=== PATIENT | female | born 1990 | race American Indian/Alaskan Native ===

== ENCOUNTER 2023-06-10 15:24 | Outpatient (REF) | payer OTHER, SELFPAY ==
[2023-06-10 16:28] LABS: Basophils Absolute Auto 0.02 K/uL (0.00-0.30); Basophils Percent Auto 0.3 % (0.0-3.0); Eosinophils Absolute Auto 0.08 K/uL (0.00-0.50); Eosinophils Percent Auto 1.1 % (0.0-7.0); Hematocrit 37.1 % (33.0-51.0); Hemoglobin* 12.3 gm/dL (12.0-16.0); Immature Granulocytes Abs Auto 0.02 K/uL (0.00-0.30); Immature Granulocytes Pct Auto 0.3 %; Lymphocytes Absolute Auto 2.07 K/uL (0.90-2.90); Lymphocytes Percent Auto 29.4 % (20-44); Mean Corpuscular HGB Conc 33 gm/dL (32-36); Mean Corpuscular Hemoglobin 28 pg (26-34); Mean Corpuscular Volume 85 fL (80-100); Monocytes Percent Auto 5.3 % (0.0-11.0); Neutrophils Absolute Auto 4.47 K/uL (1.7-7.0); Neutrophils Percent Auto 63.6 % (42.0-72.0); Platelet Count* 296 K/uL (140-440); RDW Coefficient of Variation % 12.6 % (11.5-15.5); Red Blood Count 4.35 m/uL (4.00-5.20); White Blood Count* 7.03 K/uL (4.50-11.00)
[2023-06-10 16:33] LABS: Slide Review Reflex No
[2023-06-10 16:39] LABS: Iron* 92 ug/dL (37-170)
[2023-06-10 16:50] LABS: Percent Iron Saturation 24 % (20-50); Total Iron Binding Capacity 379 ug/dL (265-497)
[2023-06-10 17:12] LABS: Thyroid Stimulating Hormone* 0.576 uIU/mL (0.270-4.20)
[2023-06-10 17:16] LABS: Ferritin* 43.4 ng/mL (6.24-137.0)
== END 2023-06-10 15:25 | disposition home or self-care (01) ==
LOC: NPINS 15:24
PROVIDERS: PCP Family Medicine; Visit Provider Dermatology
DX: L65.9 Nonscarring hair loss, unspecified (principal)
CPT/HCPCS: 82728; 83540; 83550; 84443; 85025

== ENCOUNTER 2023-07-25 08:20 | Outpatient (CLI) | payer OTHER, SELFPAY | END 2023-07-25 08:21 | disposition home or self-care (01) | LOC: NFLDREF 07-26 08:51 | PROVIDERS: PCP Family Medicine; Referring Provider Family Medicine; Visit Provider Family Medicine | DX: Z01.419 Encounter for gynecological examination (general) (routine) without abnormal findings (principal); E66.9 Obesity, unspecified; Z13.6 Encounter for screening for cardiovascular disorders; Z13.9 Encounter for screening, unspecified | CPT/HCPCS: 80053; 80061 ==

== ENCOUNTER 2023-11-01 13:55 | Outpatient (CLI) | payer OTHER, SELFPAY ==
--- NOTE | 2023-11-01 14:00 | CRLHL7_ITS ---
For Patients: As a result of the Century Cures Act, medical imaging exams and procedure reports are released immediately into your electronic medical record. You may view this report before your referring provider. If you have questions, please contact your health care provider. BILATERAL SCREENING MAMMOGRAM WITH COMPUTER-AIDED DETECTION AND TOMOSYNTHESIS TECHNIQUE: CC and MLO views were obtained. These mammographic images have been obtained using full-field digital technique. These mammographic images were interpreted with the benefit of computer-aided detection. Breast Tomosynthesis was used in this interpretation. COMPARISON FILM: 11/17/19. FINDINGS: The breasts are heterogeneously dense, which may obscure small masses IMPRESSION: There is no radiographic evidence for malignancy. ASSESSMENT: BI-RADS Category 1: Negative RECOMMENDATION: Routine screening mammogram in 1 year. A lay language report of this examination will be provided to the patient. Say Rodriguez M.D. Diagnostic Radiologist [email or web address] Transcribed: 4:37 p.mJeremias forbes/Dictated by: Say Rodriguez MD @ 11/05/2023 11:22:00 AM (Electronically Signed)
== END 2023-11-01 13:56 | disposition home or self-care (01) ==
LOC: MAMMO 13:56
PROVIDERS: PCP Family Medicine; Visit Provider Family Medicine
DX: Z12.31 Encounter for screening mammogram for malignant neoplasm of breast (principal); R92.2 Inconclusive mammogram; Z80.3 Family history of malignant neoplasm of breast
CPT/HCPCS: 77063; 77067

== ENCOUNTER 2024-02-21 10:57 | Outpatient (CLI) | payer OTHER, SELFPAY ==
--- OUTSIDE RECORDS SUMMARY | 2024-02-21 10:59 | XMS_ITS | Encounter Summary ---
Author Name Unknown Organization [facility] Address [address], [place] [address] Care Team Providers Care Operations Controller Name Role Phone Clinician, Not Found MD Primary Care Provider Un available Reason for Visit * Reason Comments Knee Problem * Therapies (Routine) - New Request Specialty Diagnoses / Procedures Referred By Dex alexis Referred To Contact Diagnoses Derangement of medial meniscus due to injury Stephen Jenkins, PAArnaldoC [address] [place] [address] Referral ID Status Reason Start Date Expiration Date V isits Requested Visits Authorized [id number] New Request 11/26/2023 11/25/2024 1 1 Encounter Details Date Type Department Care Team (Late st Contact Info) Description 12/11/2023 9:15 AM BLANKING PRESS OPERATOR Therapy [facility] at [address] [place] [address] Allyson Han, PT [address] [place] [address] Acute pain of left knee (Primary Dx) Social History Tobacco Use Types Packs/Day Years Used Date Smoking Tobacco: Never Smokeless Tobacco: Never Sex and Gender Information Value Date Recorded Sex Assigned at Not on file Gender Identity Not on file Sexual Orientation Not on file documented as of this encounter Progress Notes * Allyson Han, PT - 12/11/2023 9:15 AM CST Physical Therapy Knee Evaluation/Plan of Care Initial Certification Period: 12/11/2023 to 02/09/24 Referring Provider: Stephen Jenkins Visit Diagnosis: 1. Acute pain of left knee Precautions: None Orders: Evaluate & treat Onset/Referral Date: 11/26/23 X-ray L knee 11/26/23: FINDINGS: Three views were obtained. No acute or significant bone or joint abnormality of the left knee is identified. Alignment is unremarkable. Minimal dorsal patellar osteophyte formation. No significant joint effusion. SUBJECTIVE Reason for Visit: Luanne is a 33 y/o F who presents with left knee pain after she slipped on the ice on 11/25/23. She heard a pop, noted rapid onset of knee swelling, and was unable to bear weight. She was seen in and given crutches, also using wheelchair for long distances. 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 She has an appointment with Dr. Kelly at [facility] next week. She is supposed to go to [place] in January and also supposed to fly to [place] soonto see her sister's baby. Symptoms have been improving gradually. She is using a knee brace. Patient Therapy Goals:Resume previous level of activity symptom free. Past Medical History: Patient has no past medical history on file. Recently Experienced (Red Flags): None Previous Treatment: medications, brace Benefited from previous treatment: yes Pain details: Current pain intensity level: 3/10 Pain location: medial L knee Additional Symptoms: swelling Aggravating factors:any weight bearing Relieving factors: Restriction of activity Work/Leisure/Sport: As above. Enjoys dance. Patient History: Low Complexity: No personal factors or comorbidities that impact plan of care OBJECTIVE Observation: Lateral stability knee brace donned Gait Exam: with axillary crutches, NWB L LE Edema:Circumference: 34.5 cmn R, 37 cm L Screening: Not performed ROM: AROM Left Extension ROM: initially lacking 5, then close to full extension at end of session Flexion ROM: 85 Right Extension ROM: 0 Flexion ROM: 140 Strength: Left: Quad set: fair SLR: fair, without extensor lag Joint Mobility: Not tested Palpation: Left tender: Medial joint line, VMO Special Tests: Left: Lachmans for ACL: Negative Posterior drawer for PCL: Negative Valgus Stress for MCL: Positive for pain Varus Stress for LCL: Negative Rahat: Positive PT - Musculoskeletal - Knee Knee Outcome Survey - ADL (0-100%, 100 being best): 49 Knee Outcome Survey - Sport (0-100%, 100% being best): 38 Clinical Examination: High Complexity: Addressed 4 or more elements from body structures and functions (see above), and/or functional limitations as noted below. Today's Intervention/Charges: Physical Therapy Evaluation was completed and the patient was educated on the condition, planned therapy intervention and expectations from treatment. Therapeutic exercise x 10 minutes: Instructed in the following with therapist and patient demo as needed, with patient education on rationale and therapeutic effects, as well as instruction in frequency, duration and intensity as appropriate: - Supine Quad Set - 2 x daily - 2 sets - 10 reps - 5 hold - Supine Active Straight Leg Raise - 2 x daily - 10 reps - Supine Heel Slide - 2 x daily - 15 reps - Supine Knee Extension Stretch on Towel Roll - 2 x daily - 2-5 minutes hold - Seated Heel Slide - 2 x daily - 15 reps Self care/home management x 5 minutes: Diagnosis Education, RICE principles Gait training x 12 minutes: Lateral weight-shifts at barre, able to bear 100% weight through LLE. Instructed on PWB with axillary crutches and heel-toe pattern, gradual progression of weight-bearing.Education for sequencing for descending stairs with step-to pattern and railing; patient has been descending stairs with a butt scoot. Performs well. Timed Code Treatment Minutes: 27 Total Treatment Minutes: 45 Current Home Exercise Program: Access Code: [email or web address] ASSESSMENT Therapist Impression/Summary: Acute left knee pain after slip and fall, meniscus vs MCL injury. HasOrthopedics appointment on 12/25. Able to progress WBing status without increased pain today with use of crutches. Will continue to work on swelling management, ROM, quad strength and gait. PT Clinical Presentation: Low Complexity: Stable and Uncomplicated Clinical Decision Making: Low Complexity Recommendations/Equipment: continue use of brace and crutches Significant Impairments: Pain, Muscle weakness, Poor quad activation/strength, Edema, ROM Limitation Functional Limitations: difficulty dressing, difficulty with household tasks, difficulty meeting work demands, difficulty with sports/leisure activities, difficulty with gait, and difficulty with stairs Goals/Functional Outcomes: HEP/Independent Management: Demonstrate independence with HEP and self- management following each treatment session ADL's: Perform home management tasks with ease in 6 weeks. Perform sit to stand transfer using involved lower extremity in 2 weeks. Ambulation: Ambulate with normal gait pattern with minimal to no symptoms/limp in 4 weeks. Ascend/descend stairs independently with reciprocal pattern with minimal to no symptoms and improved lower extremity alignment in 4 weeks. Work: Return to work without restrictions in 8 weeks. Sports/Leisure: Return to prior level of leisure or recreational activities, including dance, without an increase in symptoms or limitations in 12 weeks. Barriers to Goal Achievement or Learning: none Prognosis: Good PLAN Planned Intervention/Education: ADL/Self Management, Education, Gait training, Heat/ice, Manual Therapy, Neuromuscular Re-education, Therapeutic Activities, Therapeutic Exercise Frequency: 1 x week Duration: 60 days Discharge Plan: Patient will be discharged from therapy when goals are achieved or patient plateausin progress. Informed Consent: Patient and/or family in agreement with the care plan. Plan for Next Treatment: Progress gait to tolerance, ROM, heel raise, quad strength. The project manager is completed by the therapist and the referring clinician's electronic signature certifies medical necessity for the plan above. KING PRESS OPERATOR documented in this encounter Plan of Treatment Upcoming Encounters Date Type Department Care Team (Late st Contact Info) Description 03/06/2024 1:45 PM CDT Appointment [facility] at [address] [place] [address] Allyson Han, PT [address] [place] [address] Scheduled Referrals Name Type Priority Associated Diagnoses Orde r Schedule Physical Therapy Referral Routine Derangement of medial meniscus due to injury Ordered: 11/26/2023 documented as of this encounter Visit Diagnoses Diagnosis Acute pain of left knee- Primary documented in this encounter Care Teams Operations Controller Relationship Specialty Start Date End Date Clinician, Not Found, [place] [address] PCP - General 12/02/23 documented as of this encounter
--- OUTSIDE RECORDS SUMMARY | 2024-02-21 10:59 | XMS_ITS | Encounter Summary ---
Author Name Unknown Organization [facility] Address [address], [place] [address] Care Team Providers Care Controls Technician Name Role Phone Clinician, Not Found MD Primary Care Provider Un available Reason for Visit * Reason Comments AFTERCARE, POST-OP CHECK Left Knee Encounter Details Date Type Department Care Team (Late st Contact Info) Description 01/01/2024 2:10 PM PHARMACY DATA ANALYST Office Visit [facility] [address] [place] [address] Thai Kelly MD [address] [place] [phone] Sprain of medial collateral ligament of left knee, subsequent encounter (Primary Dx) Social History Tobacco Use Types Packs/Day Years Used Date Smoking Tobacco: Never Smokeless Tobacco: Never Sex and Gender Information Value Date Recorded Sex Assigned at Not on file Gender Identity Not on file Sexual Orientation Not on file documented as of this encounter Patient Instructions * Patient Instructions* Robby Reagan - 01/01/2024 2:10 PM PHARMACY DATA ANALYST Thank you for Choosing [facility] for your health care visit today. Dr. Thai Kelly MD Orthopaedic Surgeon, Board Certified Medication Requests: Prescriptions are not filled on weekends or on weekdays after 3:00 PM. For all medication refills: Request a refill using MyChart or contact your pharmacy. What is Know Your Cost? Know Your Cost is a service for patients and patient/members to call and receive personalized cost information and estimates across our care group. The phone number is (COST) Saturday - Saturday 8 AM to 5 PM Advanced Imaging Scheduling: To schedule an MRI, Ultrasound, or Image guided injection at [facility] please call [phone]. To schedule an MRI or CT at a [facility] location please call [phone]. [facility] Workers' Compensation [address] [place] [address] (Phone) Email: [email or web address] Release of Information: Radiology/Imaging [address] [place] [address] (Phone) Health Information Management [address] [place] [address] (Phone) [employer] MACY DATA ANALYST documented in this encounter Progress Notes * Thai Kelly MD - 01/01/2024 2:10 PM CST Luanne Rodriguez [id number] 1990 [facility] Orth[facility] Follow-Up 01/01/2024 Chief Complaint: Left Knee MRI results History of Present Illness: Luanne Rodriguez is a 33 y.o. female who presents for follow-up regarding her left knee to review theMRI results. Patient was last seen by me on 12/25/23. At that time I suspected an ACL sprain and She is currently 5 weeks out from her injury. She had a physical therapy appointment for this morning but her therapist had to cancel. She has plans to go to [place] on January 15. She also purchased [employer]. Review of Systems: Negative for any radicular pain, weakness, or numbness in the distal lower extremities. No fever, chills, rash, or sweats. Physical Exam: We reviewed the MRI study. It confirms a sprain of the medial collateral ligament. The Anterior Crucial Ligament is intact and there is no meniscus tear Imaging: MRI of the left knee - (01/01/24): IMPRESSION: 1. Moderate sprain of the medial collateral ligament, proximal aspect. 2. Possible mild sprain of the lateral retinaculum, although the overlying fluid signal may be incidental or related to the superficial infrapatellar fluid/bursitis. 3. No meniscal tear identified. No evidence of ACL tear or other ligament or tendon disruption. 4. The T2 signal in the superior lateral aspect of Hoffa's fat pad may reflect edema or inflammation related to contusion or mechanical fat pad impingement. I ordered and independently reviewed and interpreted the imaging studies above; the results were discussed with the patient. Assessment: Medial collateral ligament sprain, left knee Plan: She can continue with her rehab exercises and gradually increase her activities as tolerated. I suspect the residual soreness will resolve over the next few weeks. We will see her back for a follow up on an as needed basis. Scribe Disclosure: I, Bella A Dajuan, am serving as a scribe to document services personally performed by Thai Kelly MD at this visit, based upon the provider's statements to me. All documentation has been reviewed by the aforementioned provider prior to being entered into the official medical record. Portions of this medical record were completed by a scribe. UPON MY REVIEW AND AUTHENTICATION BY ELECTRONIC SIGNATURE, this confirms (a) I performed the applicable clinical services, and (b) the record is accurate. Thai Kelly MD documented in this encounter Plan of Treatment Upcoming Encounters Date Type Department Care Team (Late st Contact Info) Description 03/06/2024 1:45 PM CDT Appointment [facility] at [address] [place] [address] Allyson Han, PT [address] [place] [address] documented as of this encounter Visit Diagnoses Diagnosis Sprain of medial collateral ligament of left knee, subsequent encounter- Primary documented in this encounter Care Teams Controls Technician Relationship Specialty Start Date End Date Clinician, Not Found, [place] [address] PCP - General 12/02/23 documented as of this encounter
--- OUTSIDE RECORDS SUMMARY | 2024-02-21 10:59 | XMS_ITS | Encounter Summary ---
Author Name Unknown Organization [facility] Address [address] [place] [address] Care Team Providers Care Lining Cementer Name Role Phone Clinician, Not Found MD Primary Care Provider Un available Reason for Visit * Procedure/Equipment (Routine) - Incomplete Specialty Diagnoses / Procedures Referred By Dex alexis Referred To Contact Diagnoses Acute pain of left knee Procedures MR Knee Lt WO IV Cont Thai Kelly MD [address] [address] Referral ID Status Reason Start Date Expiration Date V isits Requested Visits Authorized [id number] Incomplete 12/25/2023 03/25/2025 1 1 Encounter Details Date Type Department Care Team (Late st Contact Info) Description 01/01/2024 11:50 AM HAIR STYLIST Ancillary Procedure [facility] [address] [place], [place] [id number] Thai Kelly MD [address] [facility] [address] [address] [place] [id number] Acute pain of left knee Social History Tobacco Use Types Packs/Day Years Used Date Smoking Tobacco: Never Smokeless Tobacco: Never Sex and Gender Information Value Date Recorded Sex Assigned at Not on file Gender Identity Not on file Sexual Orientation Not on file documented as of this encounter Plan of Treatment Upcoming Encounters Date Type Department Care Team (Late st Contact Info) Description 03/06/2024 1:45 PM CDT Appointment [facility] at [place] [address] [address] [facility] [place] [address] Allyson Han, PT [address] [place] [address] documented as of this encounter Procedures Procedure Name Priority Date/Time Associated Diagnosis Comments MR KNEE LT WO IV CONT Routine 01/01/2024 12:33 PM HAIR STYLIST Acute pain of left knee documented in this encounter Results * MR Knee Lt WO IV Cont (01/01/2024 12:33 PM HAIR STYLIST) Anatomical Region Laterality Modality Lower Extremity, Knee, Skeletal, Thigh, Leg, MSK Left Magnetic Resonance 01/01/2024 12:0 9 PM HAIR STYLIST Impressions 01/01/2024 12:48 PM HAIR STYLIST TECHNIQUE: ??Routine MRI of the left knee was performed without contrast. ? COMPARISON: ??None. ? FINDINGS: ? MEDIAL COMPARTMENT: ??No focal cartilage defect. ??No meniscal tear identified. ? LATERAL COMPARTMENT: ??No focal cartilage defect. ??No meniscal tear identified. ? PATELLOFEMORAL JOINT: ??No focal cartilage defect. ??There is no significant joint effusion or popliteal cyst. ?? No loose body identified. There is T2 signal hyperintensity in the superior lateral aspect of Hoffa's fat pad. There is a small superficial infrapatellar effusion. ? LIGAMENTS AND TENDONS: ??The anterior and posterior cruciate ligaments are intact. ??There is a moderate sprain of the medial collateral ligament, proximal aspect. ??The iliotibial band, fibular collateral ligament and biceps femoris tendon are intact. ??The popliteus muscle and tendon are intact. ??No evidence for injury of the posterolateral corner support structures. EXTENSOR MECHANISM: The quadriceps and patellar tendons are intact. The medial retinaculum and medial patellofemoral ligament appear intact. There is mild fluid overlying the lateral retinaculum which may be incidental or reflective of mild sprain.. ? MARROW AND SOFT TISSUES: ??No evidence for occult fracture or other intrinsic bone lesion. ??Probable small hemangioma within the proximal medial gastrocnemius muscle. ? IMPRESSION: ?? 1. Moderate sprain of the medial collateral ligament, proximal aspect. 2. Possible mild sprain of the lateral retinaculum, although the overlying fluid signal may be incidental or related to the superficial infrapatellar fluid/bursitis. 3. ?? No meniscal tear identified. No evidence of ACL tear or other ligament or tendon disruption. 4. The T2 signal in the superior lateral aspect of Hoffa's fat pad may reflect edema or inflammation related to contusion or mechanical fat pad impingement. Narrative Procedure Note Tevin Rebolledo MD - 01/01/2024 IMPRESSION TECHNIQUE: Routine MRI of the left knee was performed without contrast. COMPARISON: None. FINDINGS: MEDIAL COMPARTMENT: No focal cartilage defect. No meniscal tearidentified. LATERAL COMPARTMENT: No focal cartilage defect. No meniscal tearidentified. PATELLOFEMORAL JOINT: No focal cartilage defect. There is no significantjoint effusion or popliteal cyst. No loose body identified. There is [id number] hyperintensity in the superior lateral aspect of Hoffa's fat pad.There is a small superficial infrapatellar effusion. LIGAMENTS AND TENDONS: The anterior and posterior cruciate ligaments areintact. There is a moderate sprain of the medial collateral ligament,proximal aspect. The iliotibial band, fibular collateral ligament andbiceps femoris tendon are intact. The popliteus muscle and tendon areintact. No evidence for injury of the posterolateral corner supportstructures. EXTENSOR MECHANISM: The quadriceps and patellar tendons are intact. Themedial retinaculum and medial patellofemoral ligament appear intact. Thereis mild fluid overlying the lateral retinaculum which may be incidental orreflective of mild sprain.. MARROW AND SOFT TISSUES: No evidence for occult fracture or otherintrinsic bone lesion. Probable small hemangioma within the proximalmedial gastrocnemius muscle. IMPRESSION: 1. Moderate sprain of the medial collateral ligament, proximal aspect. 2. Possible mild sprain of the lateral retinaculum, although the overlyingfluid signal may be incidental or related to the superficial infrapatellarfluid/bursitis. 3. No meniscal tear identified. No evidence of ACL tear or otherligament or tendon disruption. 4. The T2 signal in the superior lateral aspect of Hoffa's fat pad mayreflect edema or inflammation related to contusion or mechanical fat padimpingement. Thai Kelly MD RAD MRI documented in this encounter Visit Diagnoses Diagnosis Acute pain of left knee documented in this encounter Care Teams Lining Cementer Relationship Specialty Start Date End Date Clinician, Not Found, [place] [address] PCP - General 12/02/23 documented as of this encounter
--- OUTSIDE RECORDS SUMMARY | 2024-02-21 10:59 | XMS_ITS | Encounter Summary ---
Author Name Unknown Organization [facility] Address [address], [place] [address] Care Team Providers Care Mixer Whipped Topping Name Role Phone Clinician, Not Found MD Primary Care Provider Un available Reason for Visit * Reason Comments Knee Problem Encounter Details Date Type Department Care Team (Late st Contact Info) Description 01/08/2024 7:45 AM DEMAND PLANNER Therapy [facility] at [address] [place] [address] Allyson Han, PT [address] [place] [address] Acute pain of left knee (Primary Dx) Social History Tobacco Use Types Packs/Day Years Used Date Smoking Tobacco: Never Smokeless Tobacco: Never Sex and Gender Information Value Date Recorded Sex Assigned at Not on file Gender Identity Not on file Sexual Orientation Not on file documented as of this encounter Progress Notes * Allyson Han, PT - 01/08/2024 7:45 AM CST Physical Therapy Progress Note Visit Number: 2 Initial Certification Period: 12/11/2023 to 02/09/24 Referring Provider: Stephen Jenkins Visit Diagnosis: 1. Acute pain of left knee Precautions: None X-ray L knee 11/26/23: FINDINGS: Three views were obtained. No acute or significant bone or joint abnormality of the left knee is identified. Alignment is unremarkable. Minimal dorsal patellar osteophyte formation. No significant joint effusion. MRI L knee 01/01/24: IMPRESSION: 1. Moderate sprain of the medial [...] to contusion or mechanical fat pad impingement. SUBJECTIVE Diagnosed with MCL sprain after MRI on 01/01. Has weaned down to 1 crutch often, and also got a set of walking poles for her trip to [place] next week. Also got an elastic knee sleeve. Knee feels more flexible. Pain is lower but will still get increased soreness at the end of the day. OBJECTIVE Observation: Lateral stability knee brace donned Right quadriceps atrophy Gait Exam: With 1 axillary crutch, minimal heel-toe with flat foot Without assistive device, minimally antalgic gait ROM: AROM Left Extension ROM: 0 Flexion ROM: 130 Right Extension ROM: 0 Flexion ROM: 140 Strength: Left: SLR: good Today's Intervention/Charges: Therapeutic exercise x 20 minutes: - Heel raise x 20 - Standing knee flexion x 20 - Mini squat at barre x 15 - Standing hip ABD x 20/side - Supine heel slide 10 sec x 3 - Sit to stand from elevated surface with focus on equal WBing through L LE, can complete with use of hands during concentric phase and decreased control through eccentric phase Gait training x 25 minutes: Gait training for heel-toe gait and knee flexion during swing phase with 1 axillary crutch in R UE. Also practiced this gait pattern without AD and encouraged to ambulate short distances without AD at home as tolerated. Recommend supportive shoes for trip to [place]. Changed feet on [place] walking poles and instructed in technique with extensive practice. Answered questions about use of brace/sleeve, assistive devices. Timed Code Treatment Minutes: 45 Total Treatment Minutes: 45 Current Home Exercise Program: Access Code: [email or web address] - online - Supine Heel Slide - 2 x daily - 15 reps - Supine Knee Flexion Wall Slide - 1 x daily - 10 reps - 10 sec hold - Supine Knee Extension Stretch on Towel Roll - 2 x daily - 2-5 minutes hold - Heel Raises with Counter Support - 2 x daily - 20 reps - Standing Knee Flexion AROM with Chair Support - 2 x daily - 20 reps - Standing Hip Abduction with Counter Support - 2 x daily - 20 reps - Squat with Counter Support - 2 x daily - 15 reps - Seated Long Arc Quad - 2 x daily - 15 reps - 5 sec hold - Seated Hamstring Stretch - 2 x daily - 2 sets - 30 sec hold ASSESSMENT MRI diagnosed MCL sprain. Improving gait with less reliance on assistive device. Focused on gait training today as patient is leaving [place] trip next [place]. Will need aggressive quadriceps re-strengthening given atrophy. Improved knee flexion ROM to 130. Initial Therapist Impression/Summary: Acute left knee pain after slip and fall, meniscus vs MCL injury. Has Orthopedics appointment on 12/25. Able to progress WBing status without increased pain todaywith use of crutches. Will continue to work on swelling management, ROM, quad strength and gait. Goals/Functional Outcomes: HEP/Independent Management: Demonstrate independence with HEP and self- management following each treatment session ADL's: Perform home management tasks with ease in 6 weeks. Perform sit to stand transfer using involved lower extremity in 2 weeks. - MET 01/07 Ambulation: Ambulate with normal gait pattern with [...] in symptoms or limitations in 12 weeks. PLAN Plan for Next Treatment: Progress gait to tolerance, ROM, bike warm-up, leg press, step-up/stairs. ND PLANNER documented in this encounter Plan of Treatment Upcoming Encounters Date Type Department Care Team (Late st Contact Info) Description 03/06/2024 1:45 PM CDT Appointment [facility] at [address] [place] [address]. [place], [place] [address] Allyson Han, PT [address] [place] [address] documented as of this encounter Visit Diagnoses Diagnosis Acute pain of left knee- Primary documented in this encounter Care Teams Mixer Whipped Topping Relationship Specialty Start Date End Date Clinician, Not Found, [place] [address] PCP - General 12/02/23 documented as of this encounter
--- OUTSIDE RECORDS SUMMARY | 2024-02-21 10:59 | XMS_ITS | Clinical Summary ---
Author Name Unknown Organization [facility] Address [address] [place] [address] Care Team Providers Care Operating Room Surgical Technician Name Role Phone Clinician, Not Found MD Primary Care Provider Un available Source Comments You are receiving this document as you are listed as the primary care provider,follow-up provider, or the patient has been referred to you for consultation.This is in compliance with the Medicare and[facility] EHR Incentive Program,which states Providers who transition their patient to another setting of careor provider of care or refers their patient to another provider of care shouldprovide summary care record for each transition of care or referral. [facility] Allergies No known active allergies Medications Medication Sig Dispensed Refills Start Date End Date Status Norethindrone, Contraceptive, (MICRONOR) 0.35 MG tablet Take 1 Tablet (0.35 mg) by mouth daily. 10/24/2023 Active Active Problems No known active problems Encounters Date Type Department Care Team Description 02/19/2024 7:45 AM CDT Therapy [facility] at [address] [address] Allyson Han, PT Acute pain of left knee (Primary Dx) 02/05/2024 7:45 AM CDT Therapy [facility] at [address] [address] Allyson Han, PT Acute pain of left knee (Primary Dx) 01/29/2024 9:15 AM CDT Therapy [facility] at [address] [place] [address] Allyson Han, PT Acute pain of left knee (Primary Dx) 01/08/2024 7:45 AM COMMUNITY HEALTH NURSE SUPERVISOR Therapy [facility] at [address] [place] [address] Allyson Han, PT Acute pain of left knee (Primary Dx) 01/01/2024 2:10 PM COMMUNITY HEALTH NURSE SUPERVISOR Office Visit [facility] [address] [address] Thai Kelly MD Sprain of medial collateral ligament of left knee, subsequent encounter (Primary Dx) 01/01/2024 11:50 AM COMMUNITY HEALTH NURSE SUPERVISOR Ancillary Procedure [facility] [address] [place] [address] Thai Kelly MD Acute pain of left knee 12/25/2023 11:00 AM COMMUNITY HEALTH NURSE SUPERVISOR Office Visit [address] [address] Thai Kelly MD Acute pain of left knee (Primary Dx) 12/18/2023 1:45 PM COMMUNITY HEALTH NURSE SUPERVISOR Therapy [facility] at [address] [place] [address] Allyson Han, PT Acute pain of left knee (Primary Dx) 12/11/2023 9:15 AM COMMUNITY HEALTH NURSE SUPERVISOR Therapy [facility] at [address] [place] [address] Allyson Han, PT Acute pain of left knee (Primary Dx) 11/26/2023 10:20 AM COMMUNITY HEALTH NURSE SUPERVISOR Office Visit [place] [address] [facility] [address] [place] [id number] Stephen Jenkins, PAArnaldoC Injury of left knee, initial encounter; Derangement of medial meniscus due to injury 11/26/2023 9:25 AM COMMUNITY HEALTH NURSE SUPERVISOR Ancillary Procedure [facility] [address] [facility] [place] [address] Juan Ernst MBBS Injury of left knee, initial encounter from Last 3 Months Social History Tobacco Use Types Packs/Day Years Used Date Smoking Tobacco: Never Smokeless Tobacco: Never Tobacco Cessation:Counseling Given: Not Answered Sex and Gender Information Value Date Recorded Sex Assigned at Not on file Gender Identity Not on file Sexual Orientation Not on file Last Filed Vital Signs Vital Sign Reading Time Taken Comments Blood Pressure 120/84 11/26/2023 9:19 AM COMMUNITY HEALTH NURSE SUPERVISOR Pulse 84 11/26/2023 9:19 AM COMMUNITY HEALTH NURSE SUPERVISOR Temperature 36.9 ??C (98.5 ??F) 11/26/2023 9:19 AM CS T Respiratory Rate 16 11/26/2023 9:19 AM COMMUNITY HEALTH NURSE SUPERVISOR Oxygen Saturation 100% 11/26/2023 9:19 AM COMMUNITY HEALTH NURSE SUPERVISOR Inhaled Oxygen Concentration - - Weight - - Height - - Body Mass Index - - Plan of Treatment Upcoming Encounters Date Type Department Care Team (Late st Contact Info) Description 03/06/2024 1:45 PM CDT Appointment [facility] at [place] [address] [address] [facility] [place] [address] Allyson Han, PT [address] [place] [address] Health Maintenance Due Date Last Done Comments Cervical Cancer Screening Due 1988 Hep C Screening (Preventive Services) 1988 HIV Screening (Preventive Services) 2004 Adult Preventive Visit 2006 HepB (1) 2007 DTaP/Tdap/Td (3 - Tdap) 11/01/2033 11/01/20, 09/21/2016, 11/04/2007 Zoster/Shingles (1 of 2) 2038 HepA Aged Out 11/04/2007 No longer eligi ble based on patient's age to complete this topic Influenza Completed 07/31/2023, 09/2 11/2020, 07/22/2020, Additional history exists COVID-19 Vaccine Completed 08/06/2023, 01/25/2021 HPV Vaccine Aged Out No longer eligi ble based on patient's age to complete this topic Hib Aged Out No longer eligi ble based on patient's age to complete this topic IPV (Polio) Aged Out No longer eligi ble based on patient's age to complete this topic MCV4 Aged Out No longer eligi ble based on patient's age to complete this topic Pneumococcal Aged Out No longer eligi ble based on patient's age to complete this topic Procedures Procedure Name Priority Date/Time Associated Diagnosis Comments MR KNEE LT WO IV CONT Routine 01/01/2024 12:33 PM COMMUNITY HEALTH NURSE SUPERVISOR Acute pain of left knee XR KNEE LT 3 VIEWS STAT 11/26/2023 9: 34 AM COMMUNITY HEALTH NURSE SUPERVISOR Injury of left knee, initial encounter from Last 3 Months Results * MR Knee Lt WO IV Cont (01/01/2024 12:33 PM COMMUNITY HEALTH NURSE SUPERVISOR) Anatomical Region Laterality Modality Lower Extremity, Knee, Skeletal, Thigh, Leg, MSK Left Magnetic Resonance 01/01/2024 12:0 9 PM COMMUNITY HEALTH NURSE SUPERVISOR Impressions 01/01/2024 12:48 PM COMMUNITY HEALTH NURSE SUPERVISOR TECHNIQUE: ??Routine MRI of the left knee [...] cyst. No loose body identified. There is [id number] hyperintensity in the superior lateral aspect of [...] fat padimpingement. Thai Kelly MD RAD MRI * XR Knee Lt 3 Views (11/26/2023 9:34 AM COMMUNITY HEALTH NURSE SUPERVISOR) Anatomical Region Laterality Modality Lower Extremity, Knee Digital Ra diography 11/26/2023 9:24 AM COMMUNITY HEALTH NURSE SUPERVISOR Impressions 11/26/2023 9:42 AM COMMUNITY HEALTH NURSE SUPERVISOR COMPARISON: ??None. FINDINGS: ??Three views were obtained. ??No acute or significant bone or joint abnormality of the left knee is identified. ??Alignment is unremarkable. Minimal dorsal patellar osteophyte formation. No significant joint effusion. Narrative Procedure Note Rico Finney MD - 11/26/2023 IMPRESSION COMPARISON: None. FINDINGS: Three views were obtained. No acute or significant bone orjoint abnormality of the left knee is identified. Alignment isunremarkable. Minimal dorsal patellar osteophyte formation. No significantjoint effusion. Juan TOMLINSON RAD GD from Last 3 Months Care Teams Operating Room Surgical Technician Relationship Specialty Start Date End Date Clinician, Not Found, [place] [address] PCP - General 12/02/23
--- OUTSIDE RECORDS SUMMARY | 2024-02-21 10:59 | XMS_ITS | Encounter Summary ---
Author Name Unknown Organization [facility] Address [address] [place] [address] Care Team Providers Care Director Cardiology Name Role Phone Clinician, Not Found MD Primary Care Provider Un available Reason for Visit * Reason Comments Knee Problem Encounter Details Date Type Department Care Team (Late st Contact Info) Description 01/29/2024 9:15 AM CDT Therapy [facility] at [address] [place] [address] Allyson Han, PT [address] [place] [address] Acute pain of left knee (Primary Dx) Social History Tobacco Use Types Packs/Day Years Used Date Smoking Tobacco: Never Smokeless Tobacco: Never Sex and Gender Information Value Date Recorded Sex Assigned at Not on file Gender Identity Not on file Sexual Orientation Not on file documented as of this encounter Progress Notes * Allyson Han, PT - 01/29/2024 9:15 AM CDT Physical Therapy Progress Note Visit Number: 3 Initial Certification Period: 12/11/2023 to 02/09/24 Referring [...] contusion or mechanical fat pad impingement. SUBJECTIVE Walked 3-6 miles on vacation each day. Walking sticks were really helpful. She is still very stiff and painful in the AM. Has some clicking in the back of her knee without pain. Would really like to get back to her dance/barre class which she does virtually. Can ascend stairs reciprocally but not confident for descending. OBJECTIVE Observation: Left quadriceps atrophy Gait Exam: Without assistive device, short stride length and cautious ROM: AROM Left Extension ROM: 0 Flexion ROM: 135 - initially with pain at end-range Right Extension ROM: 0 Flexion ROM: 135 Strength: Left: SLR: good Today's Intervention/Charges: Therapeutic exercise x 23 minutes: - Reviewed what patient's typical virtual barre class consists of and how to modify while knee is still painful - Supine heel slide 10 sec x 3 - Sit to stand x 10 - Squat with chair touch x 10 - Wall squat x 10 with cues for equal weight through B LEs - Single leg bridge in figure 4 position x 10/side - Lateral 6 step-up with cues for eccentric and concentric control x 20 - Single leg stance with contralateral leg circles - mimicking barre class Manual therapy x 4 minutes: Grade 3-4 posterior tibiofemoral glides near end- range knee flexion fordecreased pain and improved flexion ROM. Gait training x 15 minutes: Gait training for increased gait speed while maintaining heel-toe gait without assistive device. Also completed backward walking with cues for terminal knee extension. Ascending and descending 4-6 steps with 2 rails reciprocally and progressed to full flight of stairs with 1 hand rail x 2 reps. Some shaking noted through left quad but no increased pain. Timed Code Treatment Minutes: 42 Total Treatment Minutes: 42 Current Home Exercise Program: Access Code: [email or web address] - online - Supine Heel Slide - 2 x daily - 15 reps - Supine Knee Flexion Wall Slide - 1 x daily - 10 reps - 10 sec hold - Supine Knee Extension Stretch on Towel Roll - 2 x daily - 2-5 minutes hold - Seated Hamstring Stretch - 2 x daily - 2 sets - 30 sec hold - Lateral Step Up - 1 x daily - 2 sets - 15 reps - Wall Squat - 1 x daily - 1-2 sets - 10 reps - Squat with Chair Touch - 1 x daily - 1-2 sets - 10 reps - Single Leg Balance with Clock Reach - 1 x daily - 2 min hold - Figure 4 Bridge - 1 x daily - 2 sets - 10 reps ASSESSMENT Advised to fully transition off of assistive device unless icy outside. Full flexion ROM today and improved tolerance to loading and strengthening. Initial Therapist Impression/Summary: Acute left knee pain [...] lower extremity in 2 weeks. - MET / Ambulation: Ambulate with normal gait pattern with [...] 12 weeks. PLAN Plan for Next Treatment: Single leg press, knee extension with resistance, lunging or plie squat. documented in this encounter Plan of Treatment Upcoming Encounters Date Type Department Care Team (Late st Contact Info) Description 03/06/2024 1:45 PM CDT Appointment [facility] at [place] [address] [address] [place] [address] Allyson Han, PT [address] [place] [address] documented as of this encounter Visit Diagnoses Diagnosis Acute pain of left knee- Primary documented in this encounter Care Teams Director Cardiology Relationship Specialty Start Date End Date Clinician, Not Found, [place] [address] PCP - General 12/02/23 documented as of this encounter
--- OUTSIDE RECORDS SUMMARY | 2024-02-21 10:59 | XMS_ITS | Encounter Summary ---
Author Name Unknown Organization [facility] Address [address], [place] [address] Care Team Providers Care Medicinal Chemist Name Role Phone Clinician, Not Found MD Primary Care Provider Un available Reason for Visit * Reason Comments Knee Problem Encounter Details Date Type Department Care Team (Late st Contact Info) Description 12/18/2023 1:45 PM SEMICONDUCTOR WAFER INSPECTOR Therapy [facility] at [address] [place] [address] Allyson Han, PT [address] [place] [address] Acute pain of left knee (Primary Dx) Social History Tobacco Use Types Packs/Day Years Used Date Smoking Tobacco: Never Smokeless Tobacco: Never Sex and Gender Information Value Date Recorded Sex Assigned at Not on file Gender Identity Not on file Sexual Orientation Not on file documented as of this encounter Progress Notes * Allyson Han, PT - 12/18/2023 1:45 PM CST Physical Therapy Progress Note Visit Number: [...] osteophyte formation. No significant joint effusion. SUBJECTIVE Hasn't taken Advil since last visit. Still using the wheelchair for work but has been putting more weight through her foot with walk. Rearranged some of her travel. Wondering if driving is OK. The pain hasn't been too bad but her knee ROM feels blocked. Sees Dr. Kelly next week at [facility]. OBJECTIVE Observation: Lateral stability knee brace donned Gait Exam: with axillary crutches, PWB LLE with flat foot Edema:Circumference: 34.5 cmn R, 37 cm L ROM: AROM Left Extension ROM: 0 with pain into overpressure Flexion ROM: 100 - improved Right Extension ROM: 0 Flexion ROM: 140 Strength: Left: Quad set: fair+ SLR: fair, without extensor lag Palpation: Left tender: Medial joint line, VMO, MCL Special Tests: Left: Valgus Stress for MCL: Positive for pain at 30 degrees and 0 degrees Rahat: Positive Today's Intervention/Charges: Therapeutic exercise x 30 minutes: - Supine Quad Set - 2 x daily - 2 sets - 10 reps - 5 sec hold - Supine Active Straight Leg Raise - 2 x daily - 10 reps - Supine Knee Extension Strengthening - 2 x daily - 15 reps - 5 sec hold - Supine Heel Slide - 2 x daily - 15 reps - Supine Knee Extension Stretch on Towel Roll - 2 x daily - 2-5 minutes hold - Seated Heel Slide - 2 x daily - 15 reps Self care/home management x 5 minutes: Driving should be fine. Continue to ice/elevate as needed. Gait training x 5 minutes: Re-instructed PWB with axillary crutches and heel-toe pattern, gradual progression of weight-bearing. Trial with single crutch in R UE but this did increase pain so discontinued. Timed Code Treatment Minutes: 40 Total Treatment Minutes: 40 Current Home Exercise Program: Access Code: [email or web address] ASSESSMENT Some improvement in quad activation and ROM improved 0-110. Able to progress WBing. Sees Dr. Kellynext week for further assessment. Initial Therapist Impression/Summary: Acute left knee pain [...] to tolerance, ROM, heel raise, quad strength. NMES if needed. CONDUCTOR WAFER INSPECTOR documented in this encounter Plan of Treatment Upcoming Encounters Date Type Department Care Team (Late st Contact Info) Description 03/06/2024 1:45 PM CDT Appointment [facility] at [address] [place], [place] [address] Allyson Han, PT [address] [place] [address] documented as of this encounter Visit Diagnoses Diagnosis Acute pain of left knee- Primary documented in this encounter Care Teams Medicinal Chemist Relationship Specialty Start Date End Date Clinician, Not Found, [place] [address] PCP - General 12/02/23 documented as of this encounter
--- OUTSIDE RECORDS SUMMARY | 2024-02-21 10:59 | XMS_ITS | Encounter Summary ---
Author Name Unknown Organization [facility] Address [address] [place] [address] Care Team Providers Care Pinner [employer]ed [employer] Boards Name Role Phone Clinician, Not Found MD Primary Care Provider Un available Reason for Visit * Reason Comments Knee Problem Encounter Details Date Type Department Care Team (Late st Contact Info) Description 02/05/2024 7:45 AM CDT Therapy [facility] at [address] [place] [address] Allyson Han, PT [address] [place] [address] Acute pain of left knee (Primary Dx) Social History Tobacco Use Types Packs/Day Years Used Date Smoking Tobacco: Never Smokeless Tobacco: Never Sex and Gender Information Value Date Recorded Sex Assigned at Not on file Gender Identity Not on file Sexual Orientation Not on file documented as of this encounter Progress Notes * Allyson Han, PT - 02/05/2024 7:45 AM CDT Physical Therapy Progress Note Visit Number: 4 Initial Certification Period: 12/11/2023 to 02/09/24 Referring [...] contusion or mechanical fat pad impingement. SUBJECTIVE She has not been using any assistive device. Her knee has been painful 2/10 daily. Yesterday the wall sits were more painful. Used her compression sleeve and today her knee feels much better. She has a lot of travelling this upcoming week with multiple work conferences/presentations. OBJECTIVE Observation: Left quadriceps atrophy Gait Exam: WNL ROM: AROM Left Extension ROM: 0 Flexion ROM: 135 Right Extension ROM: 0 Flexion ROM: 135 Today's Intervention/Charges: Therapeutic exercise x 40 minutes: - Stationary bike warm-up x 4 minutes, level 1 - Lateral 6 step-up x 20 - Lateral 6 step-down x 20 - Wall squat x 10 - will add - Reviewed barre class exercises - she has done a class at home and it went well except for plie squat in 5th position - Single leg stance with contralateral leg circles - mimicking barre class - Single knee extension L 2 plates 3 x 8 - Standing quadriceps stretch 2 x 30 sec - Reverse lunge at barre first with hand support and progressing to unsupported x 10/side - Answered questions about continued use of knee sleeve, ice Timed Code Treatment Minutes: 40 Total Treatment Minutes: 40 Current Home Exercise Program: Access Code: [email or web address] - online - Wall Squat - 1 x daily - 1-2 sets - 10 reps - 5 sec hold - Single Leg Balance with Clock Reach - 1 x daily - 2 min hold - Reverse Lunge - 1 x daily - 2 sets - 10 reps - Figure 4 Bridge - 1 x daily - 2 sets - 10 reps - Lateral Step Down with Hip Hinge - 1 x daily - 2 sets - 15 reps - Seated Hamstring Stretch - 2 x daily - 2 sets - 30 sec hold - Standing Quadriceps Stretch - 2 x daily - 2 sets - 30 sec hold ASSESSMENT Full ROM, no assistive device and stairs going well. Still has low-level pain in knee but demonstrating good stability with exercises in clinic. Progressing well toward goals. Initial Therapist Impression/Summary: Acute left knee pain [...] lower extremity in 2 weeks. - MET 3/6 Ambulation: Ambulate with normal gait pattern with minimal to no symptoms/limp in 4 weeks. - MET /3 Ascend/descend stairs independently with reciprocal pattern with minimal to no symptoms and improved lower extremity alignment in 4 weeks. - MET /3 Work: Return to work without restrictions in 8 weeks. Sports/Leisure: Return to prior level of leisure or recreational activities, including dance, without an increase in symptoms or limitations in 12 weeks. - Progressing 02/04 PLAN Plan for Next Treatment: Single leg press, knee extension with resistance, grapevine, unstable surface, curtsy squat. documented in this encounter Plan of Treatment Upcoming Encounters Date Type Department Care Team (Late st Contact Info) Description 03/06/2024 1:45 PM CDT Appointment [facility] at [address] [place] [address] Allyson Han, PT [address] [place] [id number] documented as of this encounter Visit Diagnoses Diagnosis Acute pain of left knee- Primary documented in this encounter Care Teams [employer] Relationship Specialty Start Date End Date Clinician, Not Found, [place] [address] PCP - General 12/02/23 documented as of this encounter
--- OUTSIDE RECORDS SUMMARY | 2024-02-21 10:59 | XMS_ITS | Encounter Summary ---
Author Name Unknown Organization [facility] Address [address] [place] [address] Care Team Providers Care Churner Name Role Phone Clinician, Not Found MD Primary Care Provider Un available Reason for Referral * Procedure/Equipment (Routine) - Incomplete Specialty Diagnoses / Procedures Referred By Contac t Referred To Contact Diagnoses Acute pain of left knee Procedures MR Knee Lt WO IV Cont Thai Kelly MD [address] [place] [address] [place] [address] Referral ID Status Reason Start Date Expiration Date V isits Requested Visits Authorized [id number] Incomplete 12/25/2023 03/25/2025 1 1 RTISING COLUMNIST Reason for Visit * Reason Comments KNEE PAIN Left * Consult/Transfer Care (Routine) - New Request Specialty Diagnoses / Procedures Referred By Contac t Referred To Contact Diagnoses Injury of left knee, initial encounter Derangement of medial meniscus due to injury Stephen Jenkins, PA-C [address] [place] [address] Referral ID Status Reason Start Date Expiration Date V isits Requested Visits Authorized [id number] New Request 11/26/2023 02/24/2025 1 1 Encounter Details Date Type Department Care Team (Late st Contact Info) Description 12/25/2023 11:00 AM ADVERTISING COLUMNIST Office Visit [facility] [address] [place], [place] [id number] Thai Kelly MD [address] [facility] [place] [id number] Acute pain of left knee (Primary Dx) Social History Tobacco Use Types Packs/Day Years Used Date Smoking Tobacco: Never Smokeless Tobacco: Never Sex and Gender Information Value Date Recorded Sex Assigned at Not on file Gender Identity Not on file Sexual Orientation Not on file documented as of this encounter Patient Instructions * Patient Instructions* Robby Reagan - 12/25/2023 11:00 AM ADVERTISING COLUMNIST Thank you for Choosing [facility] for your health care visit today. Dr. Thai Kelly MD Orthopaedic Surgeon, Board Certified Medication Requests: Prescriptions are not filled on weekends or on weekdays after 3:00 PM. For all medication refills: Request a refill using [employer] or contact your pharmacy. What is Know Your Cost? Know Your Cost is a service for patients and patient/members to call and receive personalized cost information and estimates across our care group. The phone number is (COST) Saturday - Saturday 8 AM to 5 PM Advanced Imaging Scheduling: To schedule an MRI, Ultrasound, or Image guided injection at [facility] please call [phone]. To schedule an MRI or CT at a [facility] please call [phone]. [facility] Workers' Compensation [address] [place] [address] (Phone) Email: [email or web address] Release of Information: Radiology/Imaging [address] [place] [address] (Phone) Health Information Management [address] [place] [address] (Phone) [employer] RTISING COLUMNIST documented in this encounter Progress Notes * Thai Kelly MD - 12/25/2023 11:00 AM CST Luanne Rodriguez [id number] 1990 [facility] Consultation 12/25/2023 Chief Complaint: Left Knee Injury History of Present Illness: Luanne Rodriguez is a 33 y.o. female who presents for evaluation of a left knee injury 1 month ago onNovember 25. She slipped on ice while waking to her mailbox. During the fall her left leg came from underneath her. She heard a pop and hit the ground. She was home alone at the time so she got up and drove to her partner's house. They elevated and iced her knee but the next morning it was swollenand painful. She went to [facility] urgent care and was told it was likely a torn meniscus. She was placed in a brace and on crutches. She was instructed to rest for 2 weeks and then begin PT. She began PTtwo weeks ago had has done 2 sessions so far. She is doing quad strengthening exercises and others there. Patient believes her inflammation has gone down some this week. She is able to put some weight on it but not entirely. She is practicing stairs at PT which feels fine. When she twists her knee she feels a twinge of pain on the inside part of her knee. Allergies: The patient has allergies to Patient has no known allergies.. Current Medications: The patient has a current medication list which includes the following prescription(s): norethindrone (contraceptive). Past Medical History: The patient has no past medical history on file. Past Surgical History: The patient has no past surgical history on file. Family History: The patient's family history is not on file. The General Medical History Form dated 12/25/2023 was updated and reviewed with the patient; this islocated in [facility] in [facility]. Review of Systems: Negative for cardiac, respiratory, gastrointestinal, or neurologic symptoms. Physical Exam: There were no vitals taken for this visit. General: The patient is in no acute distress. She has difficulty taking a few steps from the wheelchair to the exam table. Left Knee: Small effusion, full extension. Flexion to about 90 degrees, further flexion is painful.Medial and lateral collateral ligaments are stable. Debra's grade 2+ to 3. Negative posterior drawer. No medial or lateral joint line tenderness. Cardiovascular/Neuro: Sensation, motor function, and circulation are intact in the distal lower extremities. Skin: Clear, without rash or erythema Imaging: Radiographs of the left knee - 3 views (11/26/23): FINDINGS: Three views were obtained. No acute or significant bone or joint abnormality of the left knee is identified. Alignment is unremarkable. Minimal dorsal patellar osteophyte formation. No significant joint effusion. I independently reviewed and interpreted the imaging studies above; the results were discussed withthe patient. Assessment: Left knee sprain Plan: Her history and exam findings are suggestive of a tear of the ACL. I recommended that we obtain an MRI study at this point. It has been a month and she has not progressed with conservative treatment. Scribe Disclosure: I, Bella Graff, am serving as a scribe to document [...] PM CDT Appointment [facility] at [address] [place] [address] Allyson Han, PT [address] [place] [address] documented as of this encounter Results * MR Knee Lt WO IV Cont (01/01/2024 12:33 PM ADVERTISING COLUMNIST) Anatomical Region Laterality Modality Lower Extremity, Knee, Skeletal, Thigh, Leg, MSK Left Magnetic Resonance 01/01/2024 12:0 9 PM ADVERTISING COLUMNIST Impressions 01/01/2024 12:48 PM ADVERTISING COLUMNIST TECHNIQUE: ??Routine MRI of the left knee [...] cyst. No loose body identified. There is [id number] hyperintensity in the superior lateral aspect of [...] Diagnosis Acute pain of left knee- Primary Acute pain of left knee documented in this encounter Care Teams Churner Relationship Specialty Start Date End Date Clinician, Not Found, [place] [address] PCP - General 12/02/23 documented as of this encounter
--- OUTSIDE RECORDS SUMMARY | 2024-02-21 10:59 | XMS_ITS | Encounter Summary ---
Author Name Unknown Organization [facility] Address [address] [place] [address] Care Team Providers Care Cd Mixer Name Role Phone Clinician, Not Found MD Primary Care Provider Un available Reason for Visit * Reason Comments Knee Problem Encounter Details Date Type Department Care Team (Late st Contact Info) Description 02/19/2024 7:45 AM CDT Therapy [facility] at [address] [place] [address] Allyson Han, PT [address] [place] [address] Acute pain of left knee (Primary Dx) Social History Tobacco Use Types Packs/Day Years Used Date Smoking Tobacco: Never Smokeless Tobacco: Never Sex and Gender Information Value Date Recorded Sex Assigned at Not on file Gender Identity Not on file Sexual Orientation Not on file documented as of this encounter Progress Notes * Allyson Han, PT - 02/19/2024 7:45 AM CDT Physical Therapy Progress Note Visit Number: 6 Initial Certification Period: 12/11/2023 to 02/09/24 Referring [...] contusion or mechanical fat pad impingement. SUBJECTIVE Wore heels a lot over the last week for work, this did seem to increase her soreness. Has a fair amount of constant pain in the medial knee that is stiff when she is getting up from sitting. The exercises are going fine, she does need hand support for the lunge. OBJECTIVE Left quadriceps atrophy Full knee AROM Tenderness over medial left quadriceps Hypomobile patella all directions Today's Intervention/Charges: Manual therapy x 20 minutes: Grade 3-4 patellar mobilization all directions in open pack. Grade 3 inferior glides to patella in flexion. IASTM to medial quad and rectus femoris. Therapeutic exercise x 10 minutes: - Progressed single leg bridge from figure 4 to leg extended position - Reverse lunge - reviewed, continue - Single leg squat at barre x 10 - Single leg sit to stand x 5 - added to HEP Timed Code Treatment Minutes: 30 Total Treatment Minutes: 30 (arrived late) Current Home Exercise Program: Access Code: [email or web address] [...] 2 sets - 30 sec hold ASSESSMENT Decreased pain after manual therapy today. Able to increase challenge of exercises with single leg focus. Progressing well toward goals. Goals/Functional Outcomes: HEP/Independent Management: Demonstrate independence with HEP and self- management following each treatment session ADL's: Perform home management tasks with ease in 6 weeks. Perform sit to stand transfer using involved lower extremity in 2 weeks. - MET 3/6 Ambulation: Ambulate with normal gait pattern with minimal to no symptoms/limp in 4 weeks. - MET 4/3 Ascend/descend stairs independently with reciprocal pattern with minimal to no symptoms and improved lower extremity alignment in 4 weeks. - MET 4/3 Work: Return to work without restrictions in 8 weeks. Sports/Leisure: Return to prior level of leisure or recreational activities, including dance, without an increase in symptoms or limitations in 12 weeks. - Progressing 4/3 PLAN Plan for Next Treatment: Single leg press, knee extension with resistance, grapevine, unstable surface, curtsy squat. documented in this encounter Plan of Treatment Upcoming Encounters Date Type Department Care Team (Late st Contact Info) Description 03/06/2024 1:45 PM CDT Appointment [facility] at [address] [place], [place] [address] Allyson Han, PT [facility] [place] [address] documented as of this encounter Visit Diagnoses Diagnosis Acute pain of left knee- Primary documented in this encounter Care Teams Cd Mixer Relationship Specialty Start Date End Date Clinician, Not Found, [place] [address] PCP - General 12/02/23 documented as of this encounter
--- OUTSIDE RECORDS SUMMARY | 2024-02-21 10:59 | XMS_ITS | Encounter Summary ---
Author Name Unknown Organization [facility] Address [address] [place] [address] Care Team Providers Care Flat Bed Operator Name Role Phone Unavailable Primary Care Provider Unavailabl e Reason for Visit * Procedure/Equipment (Routine) - Incomplete Specialty Diagnoses / Procedures Referred By Dex alexis Referred To Contact Diagnoses Injury of left knee, initial encounter Procedures XR Knee Lt 3 Views Juan Ernst MBBS [address] [place] [address] Referral ID Status Reason Start Date Expiration Date V isits Requested Visits Authorized [id number] Incomplete 11/26/2023 02/24/2025 1 1 Encounter Details Date Type Department Care Team (Latest Contact Info) Description 11/26/2023 9:25 AM CELLO TEACHER Ancillary Procedure [place] [address] Radiology [address] [place] [address] Juan Ernst MBBS [address] [place] [address] Injury of left knee, initial encounter Social History Tobacco Use Types Packs/Day Years [...] PM CDT Appointment [facility] at [place] [address] [address] [place] [address] Allyson Han, PT [address] [place] [address] documented as of this encounter Procedures Procedure Name Priority Date/Time Associated Diagnosis Comments XR KNEE LT 3 VIEWS STAT 11/26/2023 9: 34 AM CELLO TEACHER Injury of left knee, initial encounter documented in this encounter Results * XR Knee Lt 3 Views (11/26/2023 9:34 AM CELLO TEACHER) Anatomical Region Laterality Modality Lower Extremity, Knee Digital Ra diography 11/26/2023 9:24 AM CELLO TEACHER Impressions 11/26/2023 9:42 AM CELLO TEACHER COMPARISON: ??None. FINDINGS: ??Three views were obtained. [...] patellar osteophyte formation. No significantjoint effusion. Juan ASHBS RAD GD documented in this encounter Visit Diagnoses Diagnosis Injury of left knee, initial encounter documented in this encounter
--- OUTSIDE RECORDS SUMMARY | 2024-02-21 11:00 | XMS_ITS | Encounter Summary ---
Author Name Unknown Organization [facility] Address [address] [place] [address] Care Team Providers Care Incinerator Operator Name Role Phone Unavailable Primary Care Provider Unavailabl e Reason for Referral * Consult/Transfer Care (Routine) - New Request Specialty Diagnoses / Procedures Referred By Dex alexis Referred To Contact Diagnoses Injury of left knee, initial encounter Derangement of medial meniscus due to injury Stephen Jenkins PA-C [address] [place] [address] Referral ID Status Reason Start Date Expiration Date V isits Requested Visits Authorized [id number] New Request 11/26/2023 02/24/2025 1 1 Scheduling Instructions Your clinician has recommended an appointment with [facility]. You can quickly make your appointment online at Slacker/[email or web address]. You can also call [phone] for help scheduling your appointment. We suggest you call your health insurance company about your coverage and benefits for this appointment. Question Answer Appointment Urgency? Non-Urgent Reason for visit? acute knee pain, suspect meniscus injury RETAILER * Procedure/Equipment (Routine) - Incomplete Specialty Diagnoses / Procedures Referred By Dex alexis Referred To Contact Diagnoses Derangement of medial meniscus due to injury Procedures Crutches,Aluminum pr. (E0114) Stephen Jenkins PA-C [address] [place] [address] Referral ID Status Reason Start Date Expiration Date V isits Requested Visits Authorized [id number] Incomplete 11/26/2023 02/24/2025 1 1 RETAILER * Procedure/Equipment (Routine) - Incomplete Specialty Diagnoses / Procedures Referred By Contac t Referred To Contact Diagnoses Derangement of medial meniscus due to injury Procedures Knee No Swet Hinged (L1820) Stephen Jenkins PA-C [address] [place] [address] Referral ID Status Reason Start Date Expiration Date V isits Requested Visits Authorized [id number] Incomplete 11/26/2023 02/24/2025 1 1 RETAILER * Therapies (Routine) - New Request Specialty Diagnoses / Procedures Referred By Contac t Referred To Contact Diagnoses Derangement of medial meniscus due to injury Stephen Jenkins PA-C [address] [place] [address] Referral ID Status Reason Start Date Expiration Date V isits Requested Visits Authorized [id number] New Request 11/26/2023 11/25/2024 1 1 Scheduling Instructions Your clinician has recommended an appointment with [facility]. You can quickly make your appointment online at Slacker/schedule. You can also call [phone] for help scheduling your appointment. We suggest you call your health insurance company about your coverage and benefits for this appointment. Question Answer Appointment Urgency? Non-Urgent Requested Services Evaluate and treat May use saline for irrigation or cleansing Yes dexamethasone use Yes May check glucose per protocol (see policy link below) or if patient has symptoms? Yes RETAILER * Procedure/Equipment (Routine) - Incomplete Specialty Diagnoses / Procedures Referred By Contac t Referred To Contact Diagnoses Injury of left knee, initial encounter Procedures XR Knee Lt 3 Views Juan Ernst MBBS [address] [place] [address] Referral ID Status Reason Start Date Expiration Date V isits Requested Visits Authorized [id number] Incomplete 11/26/2023 02/24/2025 1 1 RETAILER Reason for Visit * Reason Comments Knee Pain or Injury Encounter Details Date Type Department Care Team (Late st Contact Info) Description 11/26/2023 10:20 AM BOOK RETAILER Office Visit [place] [address] [facility] [address] [place] [address] Stephen Jenkins PA-C [address] [place], [place] [address] Injury of left knee, initial encounter; Derangement of medial meniscus due to injury Social History Tobacco Use Types Packs/Day Years Used Date Smoking Tobacco: Never Smokeless Tobacco: Never Tobacco Cessation:Counseling Given: Not Answered Sex and Gender Information Value Date Recorded Sex Assigned at Not on file Gender Identity Not on file Sexual Orientation Not on file documented as of this encounter Last Filed Vital Signs Vital Sign Reading Time Taken Comments Blood Pressure 120/84 11/26/2023 9:19 AM BOOK RETAILER Pulse 84 11/26/2023 9:19 AM BOOK RETAILER Temperature 36.9 ??C (98.5 ??F) 11/26/2023 9:19 AM CS T Respiratory Rate 16 11/26/2023 9:19 AM BOOK RETAILER Oxygen Saturation 100% 11/26/2023 9:19 AM BOOK RETAILER Inhaled Oxygen Concentration - - Weight - - Height - - Body Mass Index - - documented in this encounter Patient Instructions * Patient Instructions* Stephen Jenkins PA-C - 11/26/2023 10:20 AM BOOK RETAILER [facility] RETAILER * Attachments The following attachments cannot be sent through Care Everywhere. * Meniscus Tear (Chinese) * Meniscus Tear: Exercises (Chinese) documented in this encounter Progress Notes * Stephen Jenkins PA-C - 11/26/2023 10:20 AM CST [facility] SUBJECTIVE Chief Complaint: Chief Complaint Patient presents with Knee Pain or Injury HPI: Luanne Rodriguez is a 33 y.o.female presenting to Urgent Care for evaluation of left-sided knee pain.Patient reports that she slipped on ice last night. She felt immediate pain in her left knee and has had difficulty with weight-bearing since the time of injury. Noticed increased swelling today. No history of prior injury. No other injuries reported. Past Medical History: There is no problem list on file for this patient. Social History: Social History Tobacco Use Smoking status: Never Smokeless tobacco: Never Vaping Use Vaping Use: Never used Substance Use Topics Alcohol use: Not on file Drug use: Not on file Family History: History reviewed. No pertinent family history. Medications: Reviewed in EPIC. Adverse Drug Reactions: Patient has no known allergies. ROS: As stated in the HPI, otherwise normal. OBJECTIVE Physical exam: Vital Signs: BP 120/84 (BP Location: Right Arm, BP Cuff Size: Regular - Long) Pulse 84 Temp 36.9 ??C (98.5 ??F) (Oral) Resp 16 SpO2 100% Constitutional: NAD, WDWN. HEENT: Normocephalic, atraumatic Extremities: Mild swelling about the left knee. Tenderness to palpation along the left medial jointline. No significant laxity with varus/valgus stress or with posterior drawer or Dbera maneuver. Flexion and extension of the left knee intact. No tenderness palpation of the tibia and fibula. Goodrange of motion in the left hip and ankle without pain. No bony tenderness of the ankle or foot. Imaging: XR Knee Lt 3 Views Result Date: 11/26/2023 COMPARISON: None. FINDINGS: Three views were obtained. No acute or significant bone or joint abnormality of the left knee is identified. Alignment is unremarkable. Minimal dorsal patellar osteophyte formation. No significant joint effusion. I personally reviewed all relevant studies, including results of diagnostic labs and imaging. Interventions: Orders Placed This Encounter XR Knee Lt 3 Views Physical Therapy Orthopaedic Consult Adult/Peds Knee No Swet Hinged (L1820) Crutches,Aluminum pr. (E0114) ASSESSMENT 1. Injury of left knee, initial encounter 2. Derangement of medial meniscus due to injury PLAN Exam suggestive of meniscus injury. X-ray without findings of bony injury. She was placed in a hinged knee brace and given crutches to facilitate rest. Referral to physical therapy given. Encouraged follow-up with orthopedics or primary care to determine ongoing management. Rest, ice, compression, elevation, NSAIDs (ibuprofen 600 mg 3 times per day) for now. The patient was discharged ambulatory and in stable condition. Patient discharge instructions: Discharge Instructions None Discharge References/Attachments Meniscus Tear (Chinese) Meniscus Tear: Exercises (Chinese) RETAILER documented in this encounter Nursing Notes * Elroy Luo RN - 11/26/2023 10:20 AM CST Luanne Rodriguez is a 33 y.o.female presents to the Urgent Care for Knee Pain or Injury L knee injured in fall last night. No other injuries reported. Not able to bear weight and ROM is limited. RETAILER documented in this encounter Plan of Treatment Upcoming Encounters Date Type Department Care Team (Late st Contact Info) Description 03/06/2024 1:45 PM CDT Appointment [facility] at [address] [place] [address] Allyson Han, PT [address] [place] [address] Scheduled Referrals Name Type Priority Associated Diagnoses Orde r Schedule Physical Therapy Referral Routine Derangement of medial meniscus due to injury Ordered: 11/26/2023 Orthopaedic Consult Adult/Peds Referral Routine Injury of left knee, initial encounter Derangement of medial meniscus due to injury Ordered: 11/26/2023 documented as of this encounter Results * XR Knee Lt 3 Views (11/26/2023 9:34 AM BOOK RETAILER) Anatomical Region Laterality Modality Lower Extremity, Knee Digital Ra diography 11/26/2023 9:24 AM BOOK RETAILER Impressions 11/26/2023 9:42 AM BOOK RETAILER COMPARISON: ??None. FINDINGS: ??Three views were obtained. [...] No significantjoint effusion. Juan TOMLINSON RAD GD documented in this encounter Visit Diagnoses Diagnosis Injury of left knee, initial encounter Derangement of medial meniscus due to injury Injury of left knee, initial encounter documented in this encounter
== END 2024-02-21 10:58 | disposition home or self-care (01) ==
PROVIDERS: PCP Family Medicine; Visit Provider Family Medicine
DX: N93.0 Postcoital and contact bleeding (principal); N93.8 Other specified abnormal uterine and vaginal bleeding
CPT/HCPCS: 82728; 84443; 84703

== ENCOUNTER 2024-03-12 15:52 | Outpatient (CLI) | payer OTHER, SELFPAY ==
--- NOTE | 2024-03-12 16:00 | US_ITS ---
Patient: MERLIN MATHIAS Facility:?[facility] Patient ID:?[id number] Site Patient ID:?[id number]. Site :?[id number] Study:?US-OB Pelvis TA/TV Pelvic US-03/12/2024 4:51:07 PM Ordering Physician:?Lavern Melissa Final Report: INDICATION: Post Coital and Contact bleeding. Patient currently on day 8 of menses. TECHNIQUE: Ultrasound pelvis transabdominal and transvaginal for better assessment or to better visualize the endometrium. COMPARISON: None. FINDINGS: Uterus: 8.0 x 4.0 x 4.0 cm. Normal echotexture of the myometrium. No masses. Endometrium: Transvaginal imaging was performed to better evaluate the endometrium. Endometrial thickness measures 9 mm. No sign of endometrial mass. Small amount of fluid within the endocervical canal. Right ovary 2.8 x 1.1 x 2.5 cm. Left ovary 4.4 x 3.1 x 3.1 cm. Simple appearing ovarian cyst on the left measures 3.3 x 2.1 x 2.7 cm. Cul-de-sac: No significant free fluid. IMPRESSION: 1. Trace fluid within the endocervical canal, otherwise unremarkable sonographic appearance of the uterus. 2. Simple appearing left ovarian cyst measuring 3.3 cm. Dictated by Jacinta Tobar MD @ 03/13/2024 2:32:41 PM Signed by:?Jacinta Tobar MD @03/13/2024 2:32:41 PM (Electronic Signature)
--- OUTSIDE RECORDS SUMMARY | 2024-03-12 16:10 | XMS_ITS | Encounter Summary ---
Author Name Unknown Organization [facility] Address [address] [place] [address] Care Team Providers Care Scout Name Role Phone Clinician, Not Found MD Primary Care Provider Un available Reason for Visit * Reason Comments Knee Problem Encounter Details Date Type Department Care Team (Late st Contact Info) Description 03/06/2024 1:45 PM CDT Therapy [facility] at [address] [place] [address] Allyson Han, PT [address] [place] [address] Acute pain of left knee (Primary Dx) Social History Tobacco Use Types Packs/Day Years Used Date Smoking Tobacco: Never Smokeless Tobacco: Never Sex and Gender Information Value Date Recorded Sex Assigned at Not on file Gender Identity Not on file Sexual Orientation Not on file documented as of this encounter Progress Notes * Allyson Han, PT - 03/06/2024 1:45 PM CDT Physical Therapy Progress Note Visit Number: 7 Initial Certification Period: 12/11/2023 to 02/09/24 Referring [...] contusion or mechanical fat pad impingement. SUBJECTIVE Knee will be sore after sitting or standing for long periods. Her right hip has been sore for the last week, lateral/anterior OBJECTIVE Full knee AROM Single leg squat depth: 70 degrees L, 85 degrees R (82%) Pain reproduction over right TFL R hip AROM WNL, NEO (-) Hip ABD 4+/5 R without pain Today's Intervention/Charges: Manual therapy x 10 minutes: Trigger point release to R TFL in L sidelying. Therapeutic exercise x 30 minutes: - Half kneeling hip flexor stretch with sidebend - Single leg bridge - removed from HEP - Reverse lunge - reviewed and progressed to curtsy lunge - Wall squat - progressed to 20-30 sec holds - Single leg sit to stand - [place] - added to HEP - Lateral skater jumps - added to HEP - Decrease frequency of HEP to 3x weekly Timed Code Treatment Minutes: 40 Total Treatment Minutes: 40 Current Home Exercise Program: Access Code: [email or web address] - online - Single Leg Sit to Stand with Arms Extended - 1 x daily - 3 x weekly - 2-3 sets - 10 reps - Curtsy Squat - 1 x daily - 3 x weekly - 2-3 sets - 10 reps - Wall Squat - 1 x daily - 3 x weekly - 3 reps - 20-30 sec hold - Braided Sidestepping - 1 x daily - 3 x weekly - 2 min hold - Lateral Single Leg Lunge Jumps - 1 x daily - 3 x weekly - 2 sets - 10 reps - Half Kneeling Hip Flexor Stretch with Sidebend - 1 x daily - 2 sets - 30 hold ASSESSMENT Improved hip pain after manual therapy, appears to be muscular. Overall improving with knee pain and less constant; will likely benefit from decreased frequency of HEP to allow better recovery. Goals/Functional Outcomes: HEP/Independent Management: Demonstrate independence with [...] Single leg press, knee extension with resistance, unstable surface, impactas needed. documented in this encounter Plan of Treatment Upcoming Encounters Date Type Department Care Team (Late st Contact Info) Description 03/25/2024 10:00 AM CDT Appointment [facility] at [address] [place] [address] Allyson Han, PT [address] [place], [place] [address] documented as of this encounter Visit Diagnoses Diagnosis Acute pain of left knee- Primary documented in this encounter Care Teams Scout Relationship Specialty Start Date End Date Clinician, Not Found, [place] [address] PCP - General 12/02/23 documented as of this encounter
--- OUTSIDE RECORDS SUMMARY | 2024-03-12 16:10 | XMS_ITS | Encounter Summary ---
Author Name Unknown Organization [facility] Address [address], [place] [address] Care Team Providers Care Electric Razor Mechanic Name Role Phone Clinician, Not Found MD Primary Care Provider Un available Reason for Visit * Reason Comments AFTERCARE, POST-OP CHECK Left Knee Encounter Details Date Type Department Care Team (Late st Contact Info) Description 01/01/2024 2:10 PM SLIVER CUTTER Office Visit [facility] [address] [place] [address] Thai Kelly MD [address] [place] [address] Sprain of medial collateral ligament of left [...] Instructions* Robby Reagan - 01/01/2024 2:10 PM SLIVER CUTTER Thank you for Choosing [facility] for your health care visit today. [...] MRI, Ultrasound, or Image guided injection at [facility] please call [phone]. To schedule an MRI or CT at a [facility] location please call [phone]. [facility] Workers' Compensation [address] [place] [address] (Phone) Email: [email or web address] Release of Information: Radiology/Imaging [address] [place] [address] (Phone) Health Information Management [address] [place] [address] (Phone) K[employer] ER CUTTER documented in this encounter Progress Notes * Thai Kelly MD - 01/01/2024 2:10 PM CST Luanne Rodriguez [id number] 1990 [facility] Orthopaedic Center Follow-Up 01/01/2024 Chief Complaint: Left [...] cancel. She has plans to go to [place] on January 15. She also purchased [employer]. Review of Systems: Negative for any radicular [...] as needed basis. Scribe Disclosure: I, Bella Nakul Graff, am serving as a scribe to [...] AM CDT Appointment [facility] at [address] [place] [address] Allyson Han, PT [address] [place] [address] documented as of this encounter Visit Diagnoses Diagnosis Sprain of medial collateral ligament of left knee, subsequent encounter- Primary documented in this encounter Care Teams Electric Razor Mechanic Relationship Specialty Start Date End Date Clinician, Not Found, [place] [address] PCP - General 12/02/23 documented as of this encounter
--- OUTSIDE RECORDS SUMMARY | 2024-03-12 16:10 | XMS_ITS | Encounter Summary ---
Author Name Unknown Organization [facility] Address [address] [place] [address] Care Team Providers Care Manufacturing Technology Analyst Name Role Phone Clinician, Not Found MD Primary Care Provider Un available Reason for Visit * Reason Comments Knee Problem Encounter Details Date Type Department Care Team (Late st Contact Info) Description 01/29/2024 9:15 AM CDT Therapy [facility] at [address] [place] [address] Allyson Han, PT [address] [place] [address] Acute pain of left knee (Primary Dx) [...] AM CDT Appointment [facility] [place] [address] [address] [place] [address] Allyson Han, PT [address] [place] [address] documented as of this encounter Visit Diagnoses Diagnosis Acute pain of left knee- Primary documented in this encounter Care Teams Manufacturing Technology Analyst Relationship Specialty Start Date End Date Clinician, Not Found, [place] [address] PCP - General 12/02/23 documented as of this encounter
--- OUTSIDE RECORDS SUMMARY | 2024-03-12 16:10 | XMS_ITS | Encounter Summary ---
Author Name Unknown Organization [facility] Address [address] [place] [address] Care Team Providers Care Dialysis Rn Name Role Phone Clinician, Not Found MD Primary Care Provider Un available Reason for Referral * Procedure/Equipment (Routine) - Incomplete Specialty Diagnoses / Procedures Referred By Contac t Referred To Contact Diagnoses Acute pain of left knee Procedures MR Knee Lt WO IV Cont Thai Kelly MD [address] [place] [address] [place] [address] Referral ID Status Reason Start Date Expiration Date V isits Requested Visits Authorized [id number] Incomplete 12/25/2023 03/25/2025 1 1 OLOGY DIRECTOR Reason for Visit * Reason Comments KNEE PAIN Left * Consult/Transfer Care (Routine) - New Request Specialty Diagnoses / Procedures Referred By Contac t Referred To Contact Diagnoses Injury of left knee, initial encounter Derangement of medial meniscus due to injury Stephen Jenkins, PA-C [address] [place] [address] Referral ID Status Reason Start Date Expiration Date V isits Requested Visits Authorized [id number] New Request 11/26/2023 02/24/2025 1 1 Encounter Details Date Type Department Care Team (Late st Contact Info) Description 12/25/2023 11:00 AM AUDIOLOGY DIRECTOR Office Visit [facility] [address] [place], [place] [address] Thai Kelly MD [address] [facility] [place] [id number] Acute pain of left knee (Primary Dx) Social History Tobacco Use Types Packs/Day Years Used Date Smoking Tobacco: Never Smokeless Tobacco: Never Sex and Gender Information Value Date Recorded Sex Assigned at Not on file Gender Identity Not on file Sexual Orientation Not on file documented as of this encounter Patient Instructions * Patient Instructions* Robby Reagan - 12/25/2023 11:00 AM AUDIOLOGY DIRECTOR Thank you for Choosing [facility] for your health care visit today. Dr. Thai Kelly MD Orthopaedic Surgeon, Board Certified Medication Requests: Prescriptions are not filled on weekends or on weekdays after 3:00 PM. For all medication refills: Request a refill using [employer] or contact your pharmacy. What is Know Your Cost? Know Your Cost is a service for patients and patient/members to call and receive personalized cost information and estimates across our care group. The phone number is (COST) Saturday - Saturday 8 AM to 5 PM Advanced Imaging Scheduling: To schedule an MRI, Ultrasound, or Image guided injection at [facility] please call [phone]. To schedule an MRI or CT at a [facility] please call [phone]. [facility] Workers' Compensation [address] [place] [address] (Phone) Email: [email or web address] Release of Information: Radiology/Imaging [address] [place] [address] (Phone) Health Information Management [address] [place] [address] (Phone) [employer] OLOGY DIRECTOR documented in this encounter Progress Notes * Thai Kelly MD - 12/25/2023 11:00 AM CST Luanne Rodriguez [id number] 1990 [facility] Consultation 12/25/2023 Chief Complaint: Left [...] it was swollenand painful. She went to [facility] urgent care and was told it was [...] the patient; this islocated in [facility] in [facility]. Review of Systems: Negative for cardiac, [...] AM CDT Appointment [facility] at [address] [place] [address] Allyson Han, PT [address] [place] [address] documented as of this encounter Results * MR Knee Lt WO IV Cont (01/01/2024 12:33 PM AUDIOLOGY DIRECTOR) Anatomical Region Laterality Modality Lower Extremity, Knee, Skeletal, Thigh, Leg, MSK Left Magnetic Resonance 01/01/2024 12:0 9 PM AUDIOLOGY DIRECTOR Impressions 01/01/2024 12:48 PM AUDIOLOGY DIRECTOR TECHNIQUE: ??Routine MRI of the left knee [...] cyst. No loose body identified. There is [id number] hyperintensity in the superior lateral aspect of [...] knee documented in this encounter Care Teams Dialysis Rn Relationship Specialty Start Date End Date Clinician, Not Found, [place] [address] PCP - General 12/02/23 documented as of this encounter
--- OUTSIDE RECORDS SUMMARY | 2024-03-12 16:10 | XMS_ITS | Encounter Summary ---
Author Name Unknown Organization [facility] Address [address] [place] [address] Care Team Providers Care Configuration Management Consultant Name Role Phone Clinician, Not Found MD Primary Care Provider Un available Reason for Visit * Reason Comments Knee Problem Encounter Details Date Type Department Care Team (Late st Contact Info) Description 02/05/2024 7:45 AM CDT Therapy [facility] at [address] [place] [address] Allyson Han, PT [address] [place] [address] Acute pain of left knee (Primary Dx) [...] AM CDT Appointment [facility] at [address] [place] [address] Allyson Han, PT [address] [place] [address] documented as of this encounter Visit Diagnoses Diagnosis Acute pain of left knee- Primary documented in this encounter Care Teams Configuration Management Consultant Relationship Specialty Start Date End Date Clinician, Not Found, [facility] [address] PCP - General 12/02/23 documented as of this encounter
--- OUTSIDE RECORDS SUMMARY | 2024-03-12 16:10 | XMS_ITS | Encounter Summary ---
Author Name Unknown Organization [facility] Address [address] [place] [address] Care Team Providers Care Fabric Stretcher Name Role Phone Clinician, Not Found MD Primary Care Provider Un available Reason for Visit * Reason Comments Knee Problem Encounter Details Date Type Department Care Team (Late st Contact Info) Description 01/08/2024 7:45 AM BREAKER LAYER Therapy [facility] at [address] [place] [address] Allyson Han, PT [address] [place] [address] Acute pain of left knee (Primary Dx) [...] of walking poles for her trip to [place] next week. Also got an elastic knee [...] tolerated. Recommend supportive shoes for trip to [place]. Changed feet on [place] walking poles and instructed in technique with [...] tolerance, ROM, bike warm-up, leg press, step-up/stairs. KER LAYER documented in this encounter Plan of Treatment Upcoming Encounters Date Type Department Care Team (Late st Contact Info) Description 03/25/2024 10:00 AM CDT Appointment [facility] at [address] [place] [address]. [place], [place] [address] Allyson Han, PT [address] [place] [address] documented as of this encounter Visit Diagnoses Diagnosis Acute pain of left knee- Primary documented in this encounter Care Teams Fabric Stretcher Relationship Specialty Start Date End Date Clinician, Not Found, [place] [address] PCP - General 12/02/23 documented as of this encounter
--- OUTSIDE RECORDS SUMMARY | 2024-03-12 16:10 | XMS_ITS | Clinical Summary ---
Author Name Unknown Organization [facility] Address [address] [place] [address] Care Team Providers Care Marine Electrician Name Role Phone Clinician, Not Found MD Primary Care Provider Un available Source Comments You are receiving this document as you are listed as the primary care provider,follow-up provider, or the patient has been referred to you for consultation.This is in compliance with the Medicare and[facility] EHR Incentive Program,which states Providers who transition their patient to another setting of careor provider of care or refers their patient to another provider of care shouldprovide summary care record for each transition of care or referral. [facility] Allergies No known active allergies Medications Medication Sig Dispensed Refills Start Date End Date Status Norethindrone, Contraceptive, (MICRONOR) 0.35 MG tablet Take 1 Tablet (0.35 mg) by mouth daily. 10/24/2023 Active Active Problems No known active problems Encounters Date Type Department Care Team Description 03/06/2024 1:45 PM CDT Therapy [facility] at [address] [address] Allyson Han, PT Acute pain of left knee (Primary Dx) 02/19/2024 7:45 AM CDT Therapy [facility] at [address] [address] Allyson Han, PT Acute pain of left knee (Primary Dx) 02/05/2024 7:45 AM CDT Therapy [facility] at [address] [place] [address] Allyson Han, PT Acute pain of left knee (Primary Dx) 01/29/2024 9:15 AM CDT Therapy [facility] at [address] [place] [address] Allyson Han, PT Acute pain of left knee (Primary Dx) 01/08/2024 7:45 AM PSYCH RN Therapy [facility] at [address] [place] [address] Allyson Han, PT Acute pain of left knee (Primary Dx) 01/01/2024 2:10 PM PSYCH RN Office Visit [facility] [address] [place] [phone] Thai Kelly MD Sprain of medial collateral ligament of left knee, subsequent encounter (Primary Dx) 01/01/2024 11:50 AM PSYCH RN Ancillary Procedure [facility] [address] [place] [address] Thai Kelly MD Acute pain of left knee 12/25/2023 11:00 AM PSYCH RN Office Visit [address] [address] Thai Kelly MD Acute pain of left knee (Primary Dx) 12/18/2023 1:45 PM PSYCH RN Therapy [facility] at [address] [place] [address] Allyson Han, PT Acute pain of left knee (Primary Dx) from Last 3 Months Social History Tobacco Use Types Packs/Day Years Used Date Smoking Tobacco: Never Smokeless Tobacco: Never Tobacco Cessation:Counseling Given: Not Answered Sex and Gender Information Value Date Recorded Sex Assigned at Not on file Gender Identity Not on file Sexual Orientation Not on file Last Filed Vital Signs Vital Sign Reading Time Taken Comments Blood Pressure 120/84 11/26/2023 9:19 AM PSYCH RN Pulse 84 11/26/2023 9:19 AM PSYCH RN Temperature 36.9 ??C (98.5 ??F) 11/26/2023 9:19 AM CS T Respiratory Rate 16 11/26/2023 9:19 AM PSYCH RN Oxygen Saturation 100% 11/26/2023 9:19 AM PSYCH RN Inhaled Oxygen Concentration - - Weight - - Height - - Body Mass Index - - Plan of Treatment Upcoming Encounters Date Type Department Care Team (Late st Contact Info) Description 03/25/2024 10:00 AM CDT Appointment [facility] at [place] [address] [address] [facility] [place], [place] [id number] Allyson Han, PT [address] [place], [place] [id number] Health Maintenance Due Date Last Done Comments Cervical Cancer Screening Due 1988 Hep C Screening (Preventive Services) 1988 HIV Screening (Preventive Services) 2004 Adult Preventive Visit 2006 HepB (1) 2007 DTaP/Tdap/Td (3 - Tdap) 11/01/2033 11/01/20, 09/21/2016, 11/04/2007 Zoster/Shingles (1 of 2) 2038 HepA Aged Out 11/04/2007 No longer eligi ble based on patient's age to complete this topic Influenza Completed 07/31/2023, 2 11/2020, 07/22/2020, Additional history exists COVID-19 Vaccine [...] WO IV CONT Routine 01/01/2024 12:33 PM PSYCH RN Acute pain of left knee from Last 3 Months Results * MR Knee Lt WO IV Cont (01/01/2024 12:33 PM PSYCH RN) Anatomical Region Laterality Modality Lower Extremity, Knee, Skeletal, Thigh, Leg, MSK Left Magnetic Resonance 01/01/2024 12:0 9 PM PSYCH RN Impressions 01/01/2024 12:48 PM PSYCH RN TECHNIQUE: ??Routine MRI of the left knee [...] cyst. No loose body identified. There is [id number] hyperintensity in the superior lateral aspect of [...] fat padimpingement. Thai Kelly MD RAD MRI from Last 3 Months Care Teams Marine Electrician Relationship Specialty Start Date End Date Clinician, Not Found, [place] [address] PCP - General 12/02/23
--- OUTSIDE RECORDS SUMMARY | 2024-03-12 16:10 | XMS_ITS | Encounter Summary ---
Author Name Unknown Organization [facility] Address [address], [place] [address] Care Team Providers Care Brine Tank Separator Operator Name Role Phone Clinician, Not Found MD Primary Care Provider Un available Reason for Visit * Reason Comments Knee Problem * Therapies (Routine) - New Request Specialty Diagnoses / Procedures Referred By Dex alexis Referred To Contact Diagnoses Derangement of medial meniscus due to injury Stephen Jenkins, PAArnaldoC [address] [place] [address] Referral ID Status Reason Start Date Expiration Date V isits Requested Visits Authorized [id number] New Request 11/26/2023 11/25/2024 1 1 Encounter Details Date Type Department Care Team (Late st Contact Info) Description 12/11/2023 9:15 AM DEALMAKER Therapy [facility] at [address] [place] [address] Allyson Han, PT [address] [place] [address] Acute pain of left knee (Primary Dx) [...] has an appointment with Dr. Kelly at [facility] next week. She is supposed to go to [place] in January and also supposed to fly to [place] soonto see her sister's baby. Symptoms have [...] tolerance, ROM, heel raise, quad strength. The driver license reviewing officer is completed by the therapist and the referring clinician's electronic signature certifies medical necessity for the plan above. MAKER documented in this encounter Plan of Treatment Upcoming Encounters Date Type Department Care Team (Late st Contact Info) Description 03/25/2024 10:00 AM CDT Appointment [facility] at [address] [place] [address] Allyson Han, PT [address] [place] [address] Scheduled Referrals Name Type Priority Associated Diagnoses Orde r Schedule Physical Therapy Referral Routine Derangement of medial meniscus due to injury Ordered: 11/26/2023 documented as of this encounter Visit Diagnoses Diagnosis Acute pain of left knee- Primary documented in this encounter Care Teams Brine Tank Separator Operator Relationship Specialty Start Date End Date Clinician, Not Found, [place] [address] PCP - General 12/02/23 documented as of this encounter
--- OUTSIDE RECORDS SUMMARY | 2024-03-12 16:10 | XMS_ITS | Encounter Summary ---
Author Name Unknown Organization [facility] Address [address] [place] [address] Care Team Providers Care Reading Efficiency Course Director Name Role Phone Clinician, Not Found MD Primary Care Provider Un available Reason for Visit * Reason Comments Knee Problem Encounter Details Date Type Department Care Team (Late st Contact Info) Description 02/19/2024 7:45 AM CDT Therapy [facility] at [address] [place] [address] Allyson Han, PT [address] [place] [address] Acute pain of left knee (Primary Dx) [...] AM CDT Appointment [facility] at [address] [place], [place] [address] Allyson Han, PT [facility] [place] [address] documented as of this encounter Visit Diagnoses Diagnosis Acute pain of left knee- Primary documented in this encounter Care Teams Reading Efficiency Course Director Relationship Specialty Start Date End Date Clinician, Not Found, [place] [address] PCP - General 12/02/23 documented as of this encounter
--- OUTSIDE RECORDS SUMMARY | 2024-03-12 16:10 | XMS_ITS | Encounter Summary ---
Author Name Unknown Organization [facility] Address [address] [place] [address] Care Team Providers Care Business Development Specialist Name Role Phone Clinician, Not Found MD Primary Care Provider Un available Reason for Visit * Procedure/Equipment (Routine) - Incomplete Specialty Diagnoses / Procedures Referred By Dex alexis Referred To Contact Diagnoses Acute pain of left knee Procedures MR Knee Lt WO IV Cont Thai Kelly MD [address] [facility] [place] [address] Referral ID Status Reason Start Date Expiration Date V isits Requested Visits Authorized [id number] Incomplete 12/25/2023 03/25/2025 1 1 Encounter Details Date Type Department Care Team (Late st Contact Info) Description 01/01/2024 11:50 AM AUDIOLOGY DOCTOR Ancillary Procedure [facility] [address] [place], [place] [id number] Thai Kelly MD [address] [place] [address] Acute pain of left knee Social History [...] AM CDT Appointment [facility] at [place] [address] [address] [facility] [place] [address] Allyson Han, PT [address] [place] [address] documented as of this encounter Procedures Procedure Name Priority Date/Time Associated Diagnosis Comments MR KNEE LT WO IV CONT Routine 01/01/2024 12:33 PM AUDIOLOGY DOCTOR Acute pain of left knee documented in this encounter Results * MR Knee Lt WO IV Cont (01/01/2024 12:33 PM AUDIOLOGY DOCTOR) Anatomical Region Laterality Modality Lower Extremity, Knee, Skeletal, Thigh, Leg, MSK Left Magnetic Resonance 01/01/2024 12:0 9 PM AUDIOLOGY DOCTOR Impressions 01/01/2024 12:48 PM AUDIOLOGY DOCTOR TECHNIQUE: ??Routine MRI of the left knee [...] cyst. No loose body identified. There is [id number] hyperintensity in the superior lateral aspect of [...] knee documented in this encounter Care Teams Business Development Specialist Relationship Specialty Start Date End Date Clinician, Not Found, [place] [address] PCP - General 12/02/23 documented as of this encounter
--- OUTSIDE RECORDS SUMMARY | 2024-03-12 16:10 | XMS_ITS | Encounter Summary ---
Author Name Unknown Organization [facility] Address [address] [place] [address] Care Team Providers Care Consolidator Name Role Phone Clinician, Not Found MD Primary Care Provider Un available Reason for Visit * Reason Comments Knee Problem Encounter Details Date Type Department Care Team (Late st Contact Info) Description 12/18/2023 1:45 PM BUILDING AND CONSTRUCTION MANAGER Therapy [facility] at [address] [place] [address] Allyson Han, PT [address] [place] [address] Acute pain of left knee (Primary Dx) [...] blocked. Sees Dr. Kelly next week at [facility]. OBJECTIVE Observation: Lateral stability knee brace donned [...] heel raise, quad strength. NMES if needed. DING AND CONSTRUCTION MANAGER documented in this encounter Plan of Treatment Upcoming Encounters Date Type Department Care Team (Late st Contact Info) Description 03/25/2024 10:00 AM CDT Appointment [facility] at [address] [place], [place] [id number] Allyson Han, PT [address] [place] [address] documented as of this encounter Visit Diagnoses Diagnosis Acute pain of left knee- Primary documented in this encounter Care Teams Consolidator Relationship Specialty Start Date End Date Clinician, Not Found, [place] [address] PCP - General 12/02/23 documented as of this encounter
== END 2024-03-12 15:53 | disposition home or self-care (01) ==
LOC: US 15:52
PROVIDERS: PCP Family Medicine; Visit Provider Family Medicine
DX: N93.0 Postcoital and contact bleeding (principal); N83.202 Unspecified ovarian cyst, left side
CPT/HCPCS: 76830; 76856

== ENCOUNTER 2024-06-24 13:04 | Outpatient (CLI) | payer OTHER, SELFPAY ==
--- NOTE | 2024-06-24 13:00 | CRLHL7_ITS ---
For Patients: As a result of the Century Cures Act, medical imaging exams and procedure reports are released immediately into your electronic medical record. You may view this report before your referring provider. If you have questions, please contact your health care provider. BILATERAL BREAST MRI WITHOUT AND WITH GADOLINIUM CLINICAL HISTORY: 34-year-old with elevated risk of breast carcinoma related to dense breasts and family history of mother developing breast cancer at age 38. INDICATION FOR BREAST MRI: Screening breast MRI in this high risk woman. COMPARISON STUDIES: Mammograms 11/01/2023, 11/17/2019. No prior MRIs. CONTRAST: 20 mL Dotarem TECHNIQUE: The patient was positioned prone using a breast coil. Multiple imaging sequences were obtained using 1-1.5 mm thick slices with no gap. The image sequences include T2-weighted STIR in the axial plane, T1-weighted nonfat-saturated gradient echo in the axial plane, pre- and post-contrast T1-weighted FLASH 3D with fat suppression in the axial plane, and T1-weighted FLASH high resolution 3D with fat suppression in the sagittal plane. Image post-processing was performed on a [employer] workstation. Complex 3D rendering including maximum intensity projections (MIPS) and volumetric renderings were obtained to optimize visualization of the extent of pathology and relationship to the nipple, skin, and chest wall. This aids in determining feasibility of breast conservation surgery. Subtraction, multiplanar reconstruction, mean curve determination, and angiogenesis mapping were also performed. The study was technically adequate. FINDINGS: Amount of Fibroglandular Tissue: Heterogeneous fibroglandular tissue. Breast Background Enhancement: Mild RIGHT Breast: No suspicious mass or non-mass enhancement. LEFT Breast: Left 3 o`clock, 9 cm posterior from nipple: Low suspicion 1.1 x 1.7 x 0.6 cm clumped non-mass enhancement in a linear distribution with sub threshold early and persistent delayed kinetics. Lymph Nodes: No axillary or internal mammary chain lymphadenopathy. IMPRESSIONS AND RECOMMENDATIONS: Low suspicion 1.7 cm clumped non-mass enhancement in a linear distribution at the left 3 o`clock location, 9 cm from nipple. Possible fibrocystic change/ADH/DCIS. Recommend MRI guided needle core biopsy. BI-RADS Category 4: Suspicious Dictated by Yelitza Calles MD @ 06/26/2024 11:48:15 AM (Electronically Signed)
--- OUTSIDE RECORDS SUMMARY | 2024-06-24 13:08 | XMS_ITS | Clinical Summary ---
Author Organization [facility] Address [address] [place] [address] Care Team Providers Care Datastage Consultant Name Role Phone Clinician, Not Found MD Primary Care Provider Un available Source Comments You are receiving this document as you are listed as the primary care provider,follow-up provider, or the patient has been referred to you for consultation.This is in compliance with the Medicare and[facility] EHR Incentive Program,which states Providers who transition their patient to another setting of careor provider of care or refers their patient to another provider of care shouldprovide summary care record for each transition of care or referral. [facility] Allergies No known active allergies Medications Medication Sig Dispensed Refills Start Date End Date Status Norethindrone, Contraceptive, (MICRONOR) 0.35 MG tablet Take 1 Tablet (0.35 mg) by mouth daily. 10/24/2023 Active Active Problems No known active problems Encounters Date Type Department Care Team Description 03/25/2024 10:00 AM CDT Therapy [facility] at [place] [address] [place] [address]. [place] [address] Allyson Han, PT Acute pain of left [...] Comments Blood Pressure 120/84 11/26/2023 9:19 AM SOW MANAGER Pulse 84 11/26/2023 9:19 AM SOW MANAGER Temperature 36.9 ??C (98.5 ??F) 11/26/2023 9:19 AM CS T Respiratory Rate 16 11/26/2023 9:19 AM SOW MANAGER Oxygen Saturation 100% 11/26/2023 9:19 AM SOW MANAGER Inhaled Oxygen Concentration - - Weight - - Height - - Body Mass Index - - Plan of Treatment Health Maintenance Due Date Last Done Comments Cervical Cancer Screening Due 1988 Hep C Screening (Preventive Services) 1988 MTM Covered 1988 HIV Screening (Preventive Services) 2004 Adult Preventive Visit 2006 HepB (1) 2007 Influenza (#1) 2024 07/31/2023, 07/06, 07/22/2020, Additional history exists DTaP/Tdap/Td (3 - Tdap) 11/01/2033 11/01/20, 09/21/2016, 11/04/2007 Zoster/Shingles (1 of 2) 2038 HepA Aged Out 11/04/2007 No longer eligi ble based on patient's age to complete this topic COVID-19 Vaccine Completed 08/06/2023, 01/25/2021 HPV Vaccine [...] on patient's age to complete this topic Care Teams Datastage Consultant Relationship Specialty Start Date End Date Clinician, Not Found, [place] [address] PCP - General 12/02/23
--- OUTSIDE RECORDS SUMMARY | 2024-06-24 13:08 | XMS_ITS | Encounter Summary ---
Author Organization [facility] Address [address] [place] [address] Care Team Providers Care Yard Coordinator Name Role Phone Clinician, Not Found MD Primary Care Provider Un available Reason for Visit * Reason Comments Knee Problem Encounter Details Date Type Department Care Team (Late st Contact Info) Description 03/25/2024 10:00 AM CDT Therapy [facility] at [address] [place] [address] Allyson Han, PT [address] [place] [address] Acute pain of left knee (Primary Dx) Social History Tobacco Use Types Packs/Day Years Used Date Smoking Tobacco: Never Smokeless Tobacco: Never Sex and Gender Information Value Date Recorded Sex Assigned at Not on file Gender Identity Not on file Sexual Orientation Not on file documented as of this encounter Progress Notes * Allyson Han, PT - 03/25/2024 10:00 AM CDT Physical Therapy Progress Note Visit Number: 8 Initial Certification Period: 12/11/2023 to 02/09/24 Referring [...] contusion or mechanical fat pad impingement. SUBJECTIVE After sitting for a while her low back will be painful while standing. Will feel better once walking, 20-30 sec pain then improves. Her hip has not been better as well. Knee doing pretty well overalland confident with it, still feels amina on it occasionally. OBJECTIVE Single leg squat depth: 85 degrees L, 85 degrees R - improved Pain reproduction over right TFL Full lumbar AROM; pain at end-range extension Prone instability test (+) Today's Intervention/Charges: Therapeutic exercise x 40 minutes: Re-testing as above. Updated HEP as below with focus on lateral hip strength and core stabilization exercises. - Single Leg Sit to Stand with Arms Extended - 1 x daily - 3 x weekly - 2-3 sets - 10 reps - Curtsy Squat - 1 x daily - 3 x weekly - 2-3 sets - 10 reps - Wall Squat - 1 x daily - 3 x weekly - 3 reps - 20-30 sec hold - Supine 90/90 Alternating Heel Touches with Posterior Pelvic Tilt - 1 x daily - 3 x weekly - 3 sets - 10 reps - Clamshell with Resistance - 1 x daily - 3 x weekly - 2-3 sets - 10 reps - Sit to Stand with Abdominal Contraction - this eliminated pain during sit to stand transfer Timed Code Treatment Minutes: 40 Total Treatment Minutes: 40 Current Home Exercise Program: Access Code: [email or web address] - online ASSESSMENT Patient experiencing ongoing lateral right hip pain with new bilateral low back pain during sit to stand transfers. This was improved with intentional deep abdominal contraction during the motion. Doing very well with knee overall and has full ROM and equal single leg squat depth. She will likely follow-up x 1 more visit to address ongoing back and hip symptoms; otherwise will continue with self-management if these improve over the next couple of weeks. Goals/Functional Outcomes: HEP/Independent Management: Demonstrate independence with HEP and self- management following each treatment session ADL's: Perform home management tasks with ease in 6 weeks. - MET 03/25 Perform sit to stand transfer using involved lower extremity in 2 weeks. - MET 01/07 Ambulation: Ambulate with normal gait pattern with minimal to no symptoms/limp in 4 weeks. - MET 02/04 Ascend/descend stairs independently with reciprocal pattern with minimal to no symptoms and improved lower extremity alignment in 4 weeks. - MET 02/04 Work: Return to work without restrictions in 8 weeks. - MET 03/25 Sports/Leisure: Return to prior level of leisure or recreational activities, including dance, without an increase in symptoms or limitations in 12 weeks. - MET 03/25 PLAN Plan for Next Treatment: Follow-up as needed to address ongoing symptoms. documented in this encounter Plan of Treatment Not on file documented as of this encounter Visit Diagnoses Diagnosis Acute pain of left knee- Primary documented in this encounter Care Teams Yard Coordinator Relationship Specialty Start Date End Date Clinician, Not Found, [place] [address] PCP - General 12/02/23 documented as of this encounter
== END 2024-06-24 13:05 | disposition home or self-care (01) ==
LOC: MRI 13:06
PROVIDERS: PCP Family Medicine; Visit Provider Surgery
DX: Z12.39 Encounter for other screening for malignant neoplasm of breast (principal); N63.20 Unspecified lump in the left breast, unspecified quadrant; Z91.89 Other specified personal risk factors, not elsewhere classified; Z80.3 Family history of malignant neoplasm of breast
CPT/HCPCS: 77049; A9575

== ENCOUNTER 2024-11-10 12:54 | Outpatient (CLI) | payer BC, SELFPAY ==
--- NOTE | 2024-11-10 13:00 | CRLHL7_ITS ---
For Patients: As a result of the Century Cures Act, medical imaging exams and procedure reports are released immediately into your electronic medical record. You may view this report before your referring provider. If you have questions, please contact your health care provider. BILATERAL SCREENING MAMMOGRAM WITH COMPUTER-AIDED DETECTION AND TOMOSYNTHESIS TECHNIQUE: CC and MLO views were obtained. These mammographic images have been obtained using full-field digital technique. These mammographic images were interpreted with the benefit of computer-aided detection. Breast Tomosynthesis was used in this interpretation. COMPARISON FILM: 11/01/23, 11/17/19. FINDINGS: The breasts are heterogeneously dense, which may obscure small masses. IMPRESSION: There is no radiographic evidence for malignancy. ASSESSMENT: BI-RADS Category 2: Benign RECOMMENDATION: Routine screening mammogram in 1 year. A lay language report of this examination will be provided to the patient. Say Rodriguez M.D. Diagnostic Radiologist [email or web address] SP/Dictated by: Say Rodriguez MD @ 11/11/2024 9:09:00 AM (Electronically Signed)
== END 2024-11-10 12:55 | disposition home or self-care (01) ==
LOC: MAMMO 12:57
PROVIDERS: PCP Family Medicine; Visit Provider Family Medicine
DX: Z12.31 Encounter for screening mammogram for malignant neoplasm of breast (principal); R92.333 Mammographic heterogeneous density, bilateral breasts
CPT/HCPCS: 77063; 77067

== ENCOUNTER 2025-01-05 11:51 | Outpatient (CLI) | payer BC, SELFPAY | END 2025-01-05 11:52 | disposition home or self-care (01) | LOC: NFLDREF 11:52 | PROVIDERS: PCP Family Medicine; Visit Provider Family Medicine | DX: Z83.3 Family history of diabetes mellitus (principal); E78.1 Pure hyperglyceridemia; Z13.6 Encounter for screening for cardiovascular disorders; Z13.9 Encounter for screening, unspecified | CPT/HCPCS: 80053; 80061 ==

== ENCOUNTER 2025-05-25 09:17 | Outpatient (CLI) | payer BC, SELFPAY ==
--- NOTE | 2025-05-25 09:15 | CRLHL7_ITS ---
For Patients: As a result of the Century Cures Act, medical imaging exams and procedure reports are released immediately into your electronic medical record. You may view this report before your referring provider. If you have questions, please contact your health care provider. BILATERAL BREAST MRI WITHOUT AND WITH GADOLINIUM CLINICAL HISTORY: 35-year-old female with elevated risk of breast cancer due to strong family history, mammographically dense breasts. INDICATION FOR BREAST MRI: Screening breast MRI in this high-risk woman. COMPARISON STUDIES: Breast MRI 06/24/2024, mammogram 11/10/2024. CONTRAST: 14 mL Dotarem IV. TECHNIQUE: The patient was positioned prone using a breast coil. Multiple imaging sequences were obtained using 1-1.5 mm thick slices with no gap. The image sequences include T2-weighted STIR in the axial plane, T1-weighted nonfat-saturated gradient echo in the axial plane, pre- and post-contrast T1-weighted FLASH 3D with fat suppression in the axial plane, and T1-weighted FLASH high resolution 3D with fat suppression in the sagittal plane. Image post-processing was performed on a [employer] workstation. Complex 3D rendering including maximum intensity projections (MIPS) and volumetric renderings were obtained to optimize visualization of the extent of pathology and relationship to the nipple, skin, and chest wall. This aids in determining feasibility of breast conservation surgery. Subtraction, multiplanar reconstruction, mean curve determination, and angiogenesis mapping were also performed. The study was technically adequate. FINDINGS: Amount of Fibroglandular Tissue: Heterogeneous fibroglandular tissue. Breast Background Enhancement: Mild. RIGHT Breast: There are no suspicious areas of enhancement. LEFT Breast: There are no suspicious areas of enhancement. Lymph Nodes: No adenopathy. IMPRESSIONS AND RECOMMENDATIONS: Negative, there is no MRI evidence of malignancy. Continue annual screening mammography and as clinically indicated screening breast MRI. The mammogram and MRI should be offset by six-month intervals of time. BI-RADS Category: 1: Negative Dictated by Cecilia Lin MD @ 05/26/2025 3:01:15 PM /sp SP/Dictated by: Cecilia Lin MD @ 05/26/2025 3:02:00 PM (Electronically Signed)
== END 2025-05-25 09:18 | disposition home or self-care (01) ==
LOC: MRI 09:18
PROVIDERS: PCP Family Medicine; Visit Provider Surgery
DX: Z12.39 Encounter for other screening for malignant neoplasm of breast (principal); Z91.89 Other specified personal risk factors, not elsewhere classified
CPT/HCPCS: 77049; A9575

== ENCOUNTER 2025-07-08 12:13 | Outpatient (CLI) | payer BC, SELFPAY | END 2025-07-08 12:14 | disposition home or self-care (01) | LOC: NFLDREF 12:14 | PROVIDERS: PCP Family Medicine; Visit Provider Obstetrics & Gynecology | DX: Z31.69 Encounter for other general counseling and advice on procreation (principal) | CPT/HCPCS: 83520 ==